=== PATIENT | female | born 1955 | race Caucasian/White ===

== ENCOUNTER 2021-04-26 11:40 | Inpatient (IN) | payer MEDICARE, SELFPAY ==
[2021-04-26] VITALS (33 sets, daily range): BP systolic 90–183; BP diastolic 51–96; PULSE 56–81; RESP 11–19; TEMP 36.1–37.1; O2SAT 94–99; BMI 35.6
--- NOTE | 2021-04-26 11:43 | CT_ITS ---
We are attempting to reach an attending provider to discuss findings. An addendum with communication details will be sent when the communication is complete. STUDY: CTA HEAD AND NECK WITH CONTRAST REASON FOR EXAM: Female, 65 years old. Neuro deficit, acute, stroke suspected RADIATION DOSAGE (If Supplied By Facility): CTDIvol = ( 19.51 ) mGy, DLP = ( 670.38 ) mGycm TECHNIQUE: CT angiography was performed with a multi-detector CT scanner. Data acquisition was obtained from the skull base through the vertex following intravenous administration of contrast. MIP images were reconstructed from the axial data set. Post-processing of the angiographic images was performed, with multiplanar reformation and 3D reconstruction. Individualized dose optimization techniques were used for this CT. COMPARISON: No relevant priors. FINDINGS: Normal bilateral petrous carotid arteries. Normal right cavernous carotid artery with a normal supraclinoid bifurcation. Normal left cavernous carotid artery with a normal supraclinoid bifurcation. Normal right A1 segments of the anterior cerebral artery. Normal left A1 segments of the anterior cerebral artery. Normal intact anterior communicating artery (ACOM). Normal bilateral A2 segments of the anterior cerebral arteries. Normal right M1 and M2 segments of the middle cerebral arteries, with a normal M1 bifurcation. Normal left M1 and M2 segments of the middle cerebral arteries, with a normal M1 bifurcation. Normal right posterior communicating artery (PCOM). Normal left posterior communicating artery (PCOM). Normal bilateral vertebral arteries. Normal basilar artery with a normal basilar bifurcation. The visualized bilateral superior cerebellar (SCA) arteries are normal. Normal bilateral P1, P2 and visualized P3 segments of the posterior cerebral arteries. There is no demonstrated aneurysm of the [place] of [place]. There is no demonstrated abnormality of the visualized brain. AORTIC ARCH: There is a bovine origin of the great vessels arising from the aortic arch with a common origin of the brachiocephalic and left common carotid artery. Normal origin of the left subclavian artery. Normal origins of the brachiocephalic, left common carotid, and left subclavian arteries. RIGHT CAROTID ARTERIES: Normal right common carotid artery (CCA). There is mild atherosclerotic plaque formation with minimal narrowing of the right carotid bulb. There is mild atherosclerotic plaque formation of the origin of the right internal carotid artery with less than 50% cross sectional diameter stenosis. Normal visualized cervical portion of the right internal carotid artery. Normal origin of the right external carotid artery (ECA). LEFT CAROTID ARTERIES: Normal left common carotid artery (CCA). There is mild atherosclerotic plaque formation with minimal narrowing of the left carotid bulb. There is mild atherosclerotic plaque formation of the origin of the left internal carotid artery with less than 50% cross sectional diameter stenosis. Normal visualized cervical portion of the left internal carotid artery. Normal origin of the left external carotid artery (ECA). VERTEBRAL ARTERIES: Normal bilateral vertebral arteries. CT/STROKE CTA Head AND Neck W/Con IMPRESSION: 1. Bovine arch. 2. Mild (20%) carotid stenosis bilaterally. 3. Patent vertebral arteries bilaterally. 4. Intracranially normal without stenosis or aneurysm. Electronically Signed: Rudy Rosado MD at 12:34 EDT Tel , Service support ,
--- NOTE | 2021-04-26 11:43 | CT_ITS ---
STUDY: CT HEAD STROKE PROTOCOL W/O CONTRAST INJECTION REASON FOR EXAM: Female, 65 years old. Neuro deficit, acute, stroke suspected RADIATION DOSAGE (If Supplied By Facility): CTDIvol = ( ) mGy, DLP = ( ) mGycm TECHNIQUE: Transaxial CT imaging of the brain was performed without administration of intravenous contrast material. Individualized dose optimization techniques were used for this CT. COMPARISON: No relevant priors. FINDINGS: Normal soft tissue structures. Normal calvarium. Normal size ventricles and extra-axial spaces for the patient''s age. Normal white matter tracts of the cerebral hemispheres. Normal basal ganglia and thalami. Normal brainstem. Normal cerebellum. There is no intracranial hemorrhage. There are no findings of an acute ischemic infarction. Normal visualized paranasal sinuses. ASPECT score: CT/STROKE Brain/Head without Cont IMPRESSION: Normal unenhanced CT scan of the brain. N.B. : The above Results were Read Back by Rudy Rosado MD to Martin Husotn MD, and understanding confirmed on 04/26/2021 12:13:58 (ET). Electronically Signed: Rudy Rosado MD at 12:15 EDT Tel , Service support ,
--- NOTE | 2021-04-26 11:43 | EKG12_ITS ---
Test Reason : STROKE Blood Pressure : / mmHG Vent. Rate : 081 BPM Atrial Rate : 081 BPM P-R Int : 182 ms QRS Dur : 086 ms QT Int : 382 ms P-R-T Axes : 026 -02 035 degrees QTc Int : 443 ms Normal sinus rhythm Normal ECG Confirmed by MEDARDO HA, MALA ([id number]), editor newspaper BLANCA DELA CRUZ ([id number]) on 04/30/2021 11:06:37 A M Referred By: WENDY Confirmed By:THADDEUS BATRES MD
--- NOTE | 2021-04-26 11:44 | ED.VIS.STROK ---
HPI History of Present Illness Chief Complaint: Neuro S/Sx Informant: EMS Onset/Context/Timing Onset: Today (1100) Context: Sudden Onset (Witnessed by family) Timing: Continuous Quality and Location: Positive for Left Arm Weakness, Left Leg Weakness and Expressive Aphasia Current Severity: Severe Maximum Severity: Severe Associated Symptoms Associated Symptoms: Negative for Vomiting Narrative Narrative: Witnessed sudden weakness left side and trouble speaking. Per EMS decreased level of consciousness but she was following some commands, nonverbal. No history of stroke, all of these deficits are new and acute. Medications and medical problems are unknown except for hyperlipidemia per EMS. They said family did not have a medication list or other medications with them, and they did not know anything else about her medical history although she has a medical bracelet on. BGT per EMS 77. PFSH PFSH Medical History GERD (gastroesophageal reflux disease) Hyperlipidemia Hypothyroid Sciatica unable to obtain Home Medications Lactobacillus acidophilus [Probiotic Acidophilus] 1,000 mmu cells PO DAILY 04/26/21 [History Last Taken Unknown] biotin 1,000 mcg PO DAILY 04/26/21 [History Last Taken Unknown] calcium carbonate-vitamin D3 [Calcium 600 + D(3)] 1 tab PO DAILY 04/26/21 [History Last Taken Unknown] cholecalciferol (vitamin D3) 25 mcg PO DAILY 04/26/21 [History Last Taken Unknown] dexamethasone 1 drp EACH EYE TID 04/26/21 [History Last Taken Unknown] gabapentin 600 mg PO DAILY 04/26/21 [History Last Taken Unknown] levothyroxine 75 mcg PO DAILY 04/26/21 [History Last Taken Unknown] lovastatin 20 mg PO DAILY 04/26/21 [History Last Taken Unknown] pantoprazole 40 mg PO DAILY 04/26/21 [History Last Taken Unknown] venlafaxine 75 mg PO BID 04/26/21 [History Last Taken Unknown] Allergy/AdvReac Type Severity Reaction Status Date / Time ketoprofen [From Orudis] Allergy Other Verified 04/26/21 12:01 latex AdvReac Other Verified 04/26/21 12:01 Surgical History Bariatric surgery status Social History (Updated 04/26/21 @ 12:[address] Martin Huston MD) household members: spouse other: Has had COVID-19 vaccination series Smoking Status: Never smoker ROS ROS ED Review of Systems ROS Unobtainable: due to mental status EXAM Physical Exam Const Vital Signs: 04/26/21 11:45 04/26/21 11:56 04/26/21 11:57 Temperature 97 F L Temperature Source Temporal Pulse Rate 74 81 81 Respiratory Rate 18 18 18 Blood Pressure 142/92 H 142/90 H 142/90 H Blood Pressure Mean 108 107 107 Blood Pressure Source Blood Pressure Position Blood Pressure Location Pulse Ox 97 97 Oxygen Delivery Method Room Air Room Air 04/26/21 12:02 04/26/21 12:04 04/26/21 12:15 Temperature 97 F L Temperature Source Oral Pulse Rate 79 76 Respiratory Rate 18 18 Blood Pressure 161/84 H 161/84 H 162/87 H Blood Pressure Mean 109 112 Blood Pressure Source Monitor Monitor Blood Pressure Position Semi-Fowlers Semi-Fowlers Blood Pressure Location Left Arm Left Arm Pulse Ox 97 98 Oxygen Delivery Method Room Air Room Air 04/26/21 12:30 04/26/21 12:41 04/26/21 12:45 Temperature Temperature Source Pulse Rate 72 70 Respiratory Rate 18 18 18 Blood Pressure 161/87 H 168/86 H Blood Pressure Mean 111 113 Blood Pressure Source Monitor Monitor Blood Pressure Position Semi-Fowlers Semi-Fowlers Blood Pressure Location Left Arm Left Arm Pulse Ox 99 99 Oxygen Delivery Method Room Air Room Air Positive well nourished and well developed General Appearance ED: well developed and NAD HEENT Reports moist mucous membranes normocephalic and atraumatic Eyes PERRL Eyes Narrative: Forced deviation to the right, with confrontation and asking, patient is able to come to midline but not beyond easily; when patient is looking forward there appears to be a disconjugate gaze mostly with the right eye. Neck full ROM and supple Resp normal respiratory effort and clear to auscultation bilaterally Cardio regular rate, regular rhythm and no murmurs Rate: Negative for tachycardic GI non-tender and non-distended Auscultation: normoactive bowel sounds Palpation: soft Back/Spine no CVA tenderness General Back: other FROM Extremity normal to inspection General Extremety ED: Negative for edema, pulses abnormal or tenderness General Extremity: Negative for edema or pulses abnormal Neuro Neuro Narrative: Nonverbal, does not follow commands Sensorium / Orientation: alert Skin no rashes or lesions noted and no wounds Rashes: no rashes STROKE Vital Signs/Narrative: Vital Signs Temp Pulse Resp BP Pulse Ox 04/26/21 12:45 70 18 168/86 H 99 04/26/21 12:41 18 04/26/21 12:30 72 18 161/87 H 99 04/26/21 12:15 76 18 162/87 H 98 04/26/21 12:04 161/84 H 04/26/21 12:02 97 F L 79 18 161/84 H 97 04/26/21 11:57 81 18 142/90 H 97 04/26/21 11:56 81 18 142/90 H 97 04/26/21 11:45 97 F L 74 18 142/92 H NIHSS Initial: 1a Level of Consciousness: 2 1b LOC Questions (Score 2 if aphasic/stupor): 2 1c LOC Commands (Only score 1st attempt): 1 2 Best Gaze (If aphasic, use reflexive mvmts.): 2 3 Visual: 2 4 Facial Palsy: 1 5 Motor Arm Right (UN = amputation/fusion): 0 5 Motor Arm Left: 3 6 Motor Leg Right: 2 6 Motor Leg Left: 4 7 Limb ataxia (Only + if out of proportion): 0 8 Sensory (Aphasia/stupor=0 or 1, coma=2): 1 9 Best Language: 3 10 Dysarthria (mute, coma=2, intubated=UN): 2 11 Extinction and Inattention (only scored if +): 0 Total Score: 25 MDM MDM MDM Narrative Medical decision making narrative: Patient went directly to CT, nursing was able to secure an IV line while prepping for the plain CT, so CT angiography was performed at the same time, I looked at the plain CT scan in real-time confirming that there was no hemorrhage, and reevaluated the patient back in the room after we got a weight on the patient between transportation from the CT table back to the ED, and quickly ordering alteplase. See the NIHSS for the results of this exam. Discussed with the son, while nursing called the patient's family practice clinic confirming that she takes no antiplatelet or anticoagulant medications, more family soon arrived with her bag of medications and we were able to again confirm this. With the son at the bedside discussing pros and cons of TPA and the fact that the patient is a candidate, in addition simultaneously confirming that the last known well was actually 1045 instead of 11, the patient is still in the window and I approved TPA administration. Dr. Mccurdy with [facility] in agreement with this decision. Head CT results reported to me by neurology as negative at 1214. tPA bolus started at 1204 with blood pressure 161/84 just prior to administration. Some medical history was inferred from her medication list. Family provided other history. No recent falls or head injuries. No recent surgeries or hospitalizations in the past 2 months. 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 Normally, she walks, talks, has no disabilities otherwise and is very functionally independent. On reevaluation several times during the ED stay after alteplase started, no significant clinical changes, blood pressure remaining stable in the 160 range systolic. Nursing monitoring closely. Lab Data Attestation: I reviewed the patient's lab results. Labs: Laboratory Results - last 24 hr 04/26/21 04/26/21 04/26/21 11:54 11:55 11:55 WBC 3.1 L RBC 4.29 Hgb 13.5 Hct 39.5 MCV 92.1 MCH 31.5 MCHC 34.2 RDW Std Deviation 44.0 H RDW Coeff of Tamika 13.2 Plt Count 159 MPV 9.7 Immature Gran % (Auto) 0.300 Neut % (Auto) 57.9 Lymph % (Auto) 27.7 [place] % (Auto) 13.4 H Eos % (Auto) 0.0 Baso % (Auto) 0.7 Absolute Neuts (auto) 1.8 L Absolute Lymphs (auto) 0.85 Nucleated RBC % 0 PT 13.0 INR 1.0 APTT 28.8 Sodium Potassium Chloride Carbon Dioxide Anion Gap BUN Creatinine Estim Creat Clear Calc Est GFR (MDRD) Af Amer Est GFR (MDRD) Non-Af BUN/Creatinine Ratio Glucose Calcium Troponin I POC Glucose 81 04/26/21 11:55 WBC RBC Hgb Hct MCV MCH MCHC RDW Std Deviation RDW Coeff of Tamika Plt Count MPV Immature Gran % (Auto) Neut % (Auto) Lymph % (Auto) [place] % (Auto) Eos % (Auto) Baso % (Auto) Absolute Neuts (auto) Absolute Lymphs (auto) Nucleated RBC % PT INR APTT Sodium 140 Potassium 3.7 Chloride 105 Carbon Dioxide 29.0 Anion Gap 6 BUN 16 Creatinine 0.85 Estim Creat Clear Calc 58.58 Est GFR (MDRD) Af Amer 86 Est GFR (MDRD) Non-Af 71 BUN/Creatinine Ratio 18.8 Glucose 92 Calcium 8.7 Troponin I < 0.015 POC Glucose Radiography Diagnostic Testing: Radiology Impression Brain CT 04/26/21 11:43 IMPRESSION: Normal unenhanced CT scan of the brain. N.B. : The above Results were Read Back by Rudy Rosado MD to Martin Huston MD, and understanding confirmed on 04/26/2021 12:13:58 (ET). Electronically Signed: Rudy Rosado MD at 12:15 EDT Tel , Service support , ADDENDUM: 04/26/21 1222 IMPRESSION: Normal unenhanced CT scan of the brain. N.B. : The above Results were Read Back by Rudy Rosado MD to Martin Huston MD, and understanding confirmed on 04/26/2021 12:13:58 (ET). Electronically Signed: Rudy Rosado MD at 12:15 EDT Tel , Service support , Head/Neck CTA 04/26/21 11:43 IMPRESSION: 1. Bovine arch. 2. Mild (20%) carotid stenosis bilaterally. 3. Patent vertebral arteries bilaterally. 4. Intracranially normal without stenosis or aneurysm. Electronically Signed: Rudy Rosado MD at 12:34 EDT Tel , Service support , ADDENDUM: 04/26/21 1242 IMPRESSION: 1. Bovine arch. 2. Mild (20%) carotid stenosis bilaterally. 3. Patent vertebral arteries bilaterally. 4. Intracranially normal without stenosis or aneurysm. N.B. : The above Results were Read Back by Rudy Rosado MD to Martin Huston MD, and understanding confirmed on 04/26/2021 12:35:13 (ET). Electronically Signed: Rudy Rosado MD at 12:34 EDT Tel , Service support , Chest X-Ray 04/26/21 12:30 IMPRESSION: Normal x-ray examination of the chest. Electronically Signed: Rudy Rosado MD at 12:43 EDT Tel , Service support , EKG Initial EKG: Attestation: I personally reviewed and interpreted this EKG as follows: Interpretation: Sinus Rhythm and No Acute Injury Pattern Comments: NSR 62, normal EKG Stroke Documentation Questions Stroke Team Activated: Yes (Prehospital; met EMS in ambulance bay for initial cursory evaluation of pt) Reviewed Inclusion/Exclusion criteria: Yes Was Patient considered for Endovascular Intervention?: No (neg CTA, no LVO) IV Alteplase (t-PA) Administered: Yes No contraindications for IV Alteplase (t-PA) administration.: Yes Alteplase (t-PA) risks, benefits, alternative discussed: Yes (son and daughter; all questions answered at bedside) Critical Care Time Critical Care Time: Yes Critical care time (excluding procedures): 30-74 minutes (40), Including time spent:, Discussing w/Patient &/or Family/Wafer Mounter, Discussing w/Consultants, Arranging Admission or Transfer and Performing Direct Patient Care at Bedside Discharge Plan Dx/Rx/DC Orders Clinical Impression: Acute ischemic stroke Disposition Disposition: Acute Care [facility]
[2021-04-26 12:15] LABS: Bedside Glucose 81 mg/dL (70-110)
[2021-04-26 12:15] LABS: Absolute Lymphocyte Count 0.85 X10^3/uL (0.83-4.51); Absolute Neutrophil Count 1.8 X10^3/uL (2.0-7.7); Basophil# 0.02 X10^3/uL; Basophil% 0.7 % (0-1); Hematocrit 39.5 % (37-47); Hemoglobin 13.5 g/dL (12.0-15.0); Lymphocyte # 0.85 X10^3/ul (0.83-4.51); Lymphocyte % 27.7 % (19-41); Mean Corp Hgb Conc 34.2 g/dL (32-36); Mean Corpuscular Hgb 31.5 pg (27.0-32.0); Mean Corpuscular Volume 92.1 fL (81-99); Mean Platelet Vol. 9.7 fl (6.2-12.0); Monocyte# 0.41 X10^3/uL; Monocyte% 13.4 % (0-10); NRBC Flagged by Analyzer 0 % (0-5); Neutrophil # 1.78 X10^3/uL (2.7-7.7); Neutrophil % 57.9 % (47-70); Platelet Count 159 K/mm3 (150-450); RBC Distribution Width CV 13.2 % (11.6-14.6); Red Blood Count 4.29 M/mm3 (4.2-5.4); White Blood Count 3.1 K/mm3 (4.4-11.0)
[2021-04-26 12:17] LABS: Partial Thromboplast Time 28.8 Seconds (24.1-36.2)
[2021-04-26 12:24] LABS: Anion Gap 6 (5-15); BUN 16 mg/dL (7-18); BUN/Creat Ratio 18.8 RATIO (10-20); Calcium,Total 8.7 mg/dL (8.5-10.1); Chloride 105 mmol/L (98-107); Creatinine, Serum 0.85 mg/dL (0.55-1.02); EST Glomerular Filtration Rate 71 mL/min (>60); Est Glom Filt Rate - Afr Amer 86 mL/min (>60); Estimated Creatinine Clearance 58.58 ml/min; Glucose 92 mg/dL (74-106); Potassium 3.7 mmol/L (3.5-5.1); Sodium Level 140 mmol/L (136-145)
--- NOTE | 2021-04-26 12:30 | RAD_ITS ---
STUDY: X-RAY CHEST REASON FOR EXAM: Female, 65 years old. Neuro deficit, acute, stroke suspected TECHNIQUE: Single AP portable view of the chest. COMPARISON: None. FINDINGS: The lungs are clear and expanded. There is no demonstrated pleural abnormality. Normal size heart. Normal mediastinum and cassie. Normal visualized pulmonary arteries. Normal visualized aortic arch and descending thoracic aorta. Normal visualized thoracic spine. Normal visualized ribs, clavicles, and shoulders. There is no demonstrated abnormality of the visualized soft tissue structures of the upper abdomen. RAD/Chest 1 View IMPRESSION: Normal x-ray examination of the chest. Electronically Signed: Rudy Rosado MD at 12:43 EDT Tel , Service support ,
--- NOTE | 2021-04-26 12:49 | HP.PCM.HOS_ITS ---
HPI - General General Date of Admission: 04/26/21 HPI Narrative JULIA MCLAUGHLIN, is a 65 F with a PMH as outlined who was admitted via the ED with a complaint of left sided weakness and trouble speaking. Family had no knowledge of any other history, and only knew that she had a medical bracelet. SHe was unable to talk at all on arrival, and so couldnt give much of a history. She was noted to have a disconjugate gaze which family said had been like that for a while. Vitals in the ED showed temperature of 97 Fahrenheit with blood pressure of 142/92, respiratory rate of 18 and pulse rate of 74 and she was saturating at 97% on room air. Initial NIH stroke scale was 25. Stroke alert was called in the ED and she had a stat CT of the brain done which was negative for any evidence of ischemia or hemorrhage. She was deemed to be a candidate for TPA as last known well was around 1045. [facility] telestroke service was consulted and patient had TPA at 1204. She has been admitted to be managed for left-sided weakness and aphasia due to probable stroke. At the time I reviewed her, patient still have significant expressive aphasia but was not able to say single words and had some movement of her upper extremities spontaneously which family said was not present previously. [facility] Medical History GERD (gastroesophageal reflux disease) Hyperlipidemia Hypothyroid Sciatica Home Medications Lactobacillus acidophilus [Probiotic Acidophilus] 1,000 mmu cells PO DAILY 04/26/21 [History Last Taken Unknown] biotin 1,000 mcg PO DAILY 04/26/21 [History Last Taken Unknown] calcium carbonate-vitamin D3 [Calcium 600 + D(3)] 1 tab PO DAILY 04/26/21 [History Last Taken Unknown] cholecalciferol (vitamin D3) 25 mcg PO DAILY 04/26/21 [History Last Taken Unknown] dexamethasone 1 drp EACH EYE TID 04/26/21 [History Last Taken Unknown] gabapentin 600 mg PO DAILY 04/26/21 [History Last Taken Unknown] levothyroxine 75 mcg PO DAILY 04/26/21 [History Last Taken Unknown] lovastatin 20 mg PO DAILY 04/26/21 [History Last Taken Unknown] pantoprazole 40 mg PO DAILY 04/26/21 [History Last Taken Unknown] venlafaxine 75 mg PO BID 04/26/21 [History Last Taken Unknown] Allergy/AdvReac Type Severity Reaction Status Date / Time ketoprofen [From Orudis] Allergy Other Verified 04/26/21 12:01 latex AdvReac Other Verified 04/26/21 12:01 Surgical History Bariatric surgery status Social History (Updated 04/26/21 @ 12:[address] Martin Huston MD) household members: spouse other: Has had COVID-19 vaccination series Smoking Status: Former smoker ROS Review of Systems ROS Unobtainable: due to encephalopathy and other Details: due to aphasia Eyes Eyes: Reports other Vital Signs Vital Signs Vital Signs: 04/26/21 11:45 04/26/21 11:56 04/26/21 11:57 Temperature 97 F L Temperature Source Temporal Pulse Rate 74 81 81 Respiratory Rate 18 18 18 Blood Pressure 142/92 H 142/90 H 142/90 H Blood Pressure Mean 108 107 107 Blood Pressure Source Blood Pressure Position Blood Pressure Location Pulse Ox 97 97 Oxygen Delivery Method Room Air Room Air 04/26/21 12:02 04/26/21 12:04 04/26/21 12:15 Temperature 97 F L Temperature Source Oral Pulse Rate 79 76 Respiratory Rate 18 18 Blood Pressure 161/84 H 161/84 H 162/87 H Blood Pressure Mean 109 112 Blood Pressure Source Monitor Monitor Blood Pressure Position Semi-Fowlers Semi-Fowlers Blood Pressure Location Left Arm Left Arm Pulse Ox 97 98 Oxygen Delivery Method Room Air Room Air 04/26/21 12:30 04/26/21 12:41 Temperature Temperature Source Pulse Rate 72 Respiratory Rate 18 18 Blood Pressure 161/87 H Blood Pressure Mean 111 Blood Pressure Source Monitor Blood Pressure Position Semi-Fowlers Blood Pressure Location Left Arm Pulse Ox 99 Oxygen Delivery Method Room Air Weight Weight: 214 lb 4.629 oz Body Mass Index (BMI) 35.6 Physical Exam Const alert Constitutional Narrative: aphasic General Appearance: cooperative HEENT head/scalp atraumatic and hearing grossly normal bilaterally Eyes PERRL, EOMs intact bilaterally and conjunctivae normal Neck no lymphadenopathy, supple, no JVD and no carotid bruits Resp normal respiratory effort, no retractions, no use of accessory muscles and clear to auscultation bilaterally Cardio regular rate, regular rhythm, S1 normal heart sound, S2 normal heart sound and no murmurs GI normal to inspection, nondistended, normoactive bowel sounds, soft to palpation, non-tender and non-distended Extremity normal to inspection, full ROM and no clubbing, cyanosis or edema Peripheral Pulses: Yes pulses 2+ throughout Skin no rashes or lesions noted Neuro Neuro Narrative: expressive aphasia, able to say single words, has power 4/5 in both UEs, and 5/5 in RLE. LLE has power 3-/5 Results Lab / Micro Data Result Diagrams: 04/27/21 04:02 04/27/21 04:02 Labs: Laboratory Results - last 24 hr 04/26/21 04/26/21 04/26/21 11:54 11:55 11:55 WBC 3.1 L RBC 4.29 Hgb 13.5 Hct 39.5 MCV 92.1 MCH 31.5 MCHC 34.2 RDW Std Deviation 44.0 H RDW Coeff of Tamika 13.2 Plt Count 159 MPV 9.7 Immature Gran % (Auto) 0.300 Neut % (Auto) 57.9 Lymph % (Auto) 27.7 Bee % (Auto) 13.4 H Eos % (Auto) 0.0 Baso % (Auto) 0.7 Absolute Neuts (auto) 1.8 L Absolute Lymphs (auto) 0.85 Nucleated RBC % 0 PT 13.0 INR 1.0 APTT 28.8 Sodium Potassium Chloride Carbon Dioxide Anion Gap BUN Creatinine Estim Creat Clear Calc Est GFR (MDRD) Af Amer Est GFR (MDRD) Non-Af BUN/Creatinine Ratio Glucose Calcium Troponin I POC Glucose 81 04/26/21 11:55 WBC RBC Hgb Hct MCV MCH MCHC RDW Std Deviation RDW Coeff of Tamika Plt Count MPV Immature Gran % (Auto) Neut % (Auto) Lymph % (Auto) Bee % (Auto) Eos % (Auto) Baso % (Auto) Absolute Neuts (auto) Absolute Lymphs (auto) Nucleated RBC % PT INR APTT Sodium 140 Potassium 3.7 Chloride 105 Carbon Dioxide 29.0 Anion Gap 6 BUN 16 Creatinine 0.85 Estim Creat Clear Calc 58.58 Est GFR (MDRD) Af Amer 86 Est GFR (MDRD) Non-Af 71 BUN/Creatinine Ratio 18.8 Glucose 92 Calcium 8.7 Troponin I < 0.015 POC Glucose Radiology Impression Brain CT 04/26/21 11:43 IMPRESSION: Normal unenhanced CT scan of the brain. N.B. : The above Results were Read Back by Rudy Rosado MD to Martin Huston MD, and understanding confirmed on 04/26/2021 12:13:58 (ET). Electronically Signed: Rudy Rosado MD at 12:15 EDT Tel , Service support , ADDENDUM: 04/26/21 1222 IMPRESSION: Normal unenhanced CT scan of the brain. N.B. : The above Results were Read Back by Rudy Rosado MD to Martin Huston MD, and understanding confirmed on 04/26/2021 12:13:58 (ET). Electronically Signed: Rudy Rosado MD at 12:15 EDT Tel , Service support , Head/Neck CTA 04/26/21 11:43 IMPRESSION: 1. Bovine arch. 2. Mild (20%) carotid stenosis bilaterally. 3. Patent vertebral arteries bilaterally. 4. Intracranially normal without stenosis or aneurysm. Electronically Signed: Rudy Rosado MD at 12:34 EDT Tel , Service support , ADDENDUM: 04/26/21 1242 IMPRESSION: 1. Bovine arch. 2. Mild (20%) carotid stenosis bilaterally. 3. Patent vertebral arteries bilaterally. 4. Intracranially normal without stenosis or aneurysm. N.B. : The above Results were Read Back by Rudy Rosado MD to Martin Huston MD, and understanding confirmed on 04/26/2021 12:35:13 (ET). Electronically Signed: Rudy Rosado MD at 12:34 EDT Tel , Service support , Chest X-Ray 04/26/21 12:30 IMPRESSION: Normal x-ray examination of the chest. Electronically Signed: Rudy Rosado MD at 12:43 EDT Tel , Service support , Assessment & Plan Assessment/Plan (1) Acute ischemic stroke: PLAN: #Acute left sided weakness and aphasia due to probable stroke * S/p TPA administration. Admit to ICU * CT of the brain was negative for any evidence of ischemia or hemorrhage * CTA of the head and neck showed a bovine arch and mild 20% carotid stenosis bilaterally with patent vertebral arteries and intracranially normal arteries without stenosis or aneurysm * Admit to ICU. Hold off on aspirin or Plavix until about 24 hours after TPA administration * Consult critical care as patient will be in ICU. We will get MRI of the brain tomorrow, 24 hours after tPA administration. * neurovascular checks per stroke protocol * Check A1c and lipid panel; get 2D echo * PT OT consult. Fall precautions * Give high intensity statin * #Hypothyroidism: On Synthroid #Hyperlipidemia: On lovastatin 20 mg daily. We will switch this to high intensity statin. #Depression: On venlafaxine 75 mg twice daily. DVT prophylaxis: SCDs. No anticoagulation as patient has received TPA CODE STATUS: Full code * I discussed CODE STATUS with patient's daughter and . Daughter says she thinks she is the POA but she is not sure. However per discussion with her father as patient was not able to really partake in the discussion, they agree that they want to make patient full code for now * Total [id number] time 17 minutes. Charges/Coding Visit Charges Inpatient E&M: 90779 Init Hosp L3 Procedures Hospitalists Procedures: 40221 Advncd Care Plan 30 Min
--- NOTE | 2021-04-26 12:58 | CM.ED ---
SW Note Reason for Referral: Stroke Alert Referral Source: Stroke Alert SW was present when patient's son, daughter, and arrived in response to patient being evaluated for stroke. Patient's sleeve fixer was contacted by School Lunch Monitor and present in room. Emotional support provided to family. Plan: Patient will be admitted to ICU Gwen KANG
[2021-04-26] MEDS: 0.9% Normal Saline 1,000 ML 100 ML IV (13:12)
[2021-04-26] MEDS: Labetalol (Prefilled) 20 MG/4 ML IV (14:23)
--- NOTE | 2021-04-26 14:54 | ECHOCS_ITS ---
Reason For Study: TIA/CVA Procedure This was a 2D Doppler, Color Flow transthoracic echocardiogram. The study was technically difficult. Due to body habitus. Contrast injection was performed. Left Ventricle Normal LV size. The estimated ejection fraction is 60 %. Unable to assess diastolic dysfunction. No regional wall motion abnormalities noted. Right Ventricle Normal RV size. Normal systolic function. Atria Normal left atrium. Normal right atrium. No doppler evidence for ASD. Mitral Valve There is moderate mitral annular calcification. There is no mitral valve stenosis. No mitral valve insufficiency. Tricuspid Valve There is no tricuspid stenosis. No tricuspid valve insufficiency. Unable to estimate RV systolic pressure due to inadequate jet, pulmonary artery pressure probably normal. Aortic Valve Trisinus/trileaflet aortic valve. There is no aortic stenosis. No aortic valve insufficiency. Pulmonic Valve There is no pulmonic valvular stenosis. No pulmonic valve insufficiency. Great Vessels Normal aortic root. Pericardium/Pleural No pericardial effusion. Medication Diluted definity 3.0ml given slow IV push to enhance endocardial definition. Performed a rapid injection of agitated mix of 9 cc saline and 1cc air to assess for atrial septal defect. MMode/2D Measurements & Calculations LVIDd: 4.4 cm IVSd: 1.2 cm Ao root diam: 3.2 cm LVIDs: 3.1 cm LVPWd: 1.1 cm FS: 29.7 % LAV(MOD-bp): 46.3 ml LVAd ap4: 31.8 cm2 LVAd ap2: 25.4 cm2 LAV(MOD-bp) Indexed: 22.7 ml/m2 LVLd ap4: 8.4 cm LVLd ap2: 8.7 cm LAV(MOD-sp2): 45.7 ml EDV(MOD-sp4): 96.1 ml EDV(MOD-sp2): 61.1 ml LAV(MOD-sp4): 47.3 ml EDV(sp4-el): 101.7 ml EDV(sp2-el): 62.7 ml LVAs ap4: 15.6 cm2 LVAs ap2: 11.9 cm2 LVLs ap4: 7.4 cm LVLs ap2: 6.7 cm ESV(MOD-sp4): 27.4 ml ESV(MOD-sp2): 18.3 ml ESV(sp4-el): 27.8 ml ESV(sp2-el): 18.0 ml EF(MOD-sp4): 71.5 % EF(MOD-sp2): 70.0 % EF(sp4-el): 72.6 % SV(MOD-sp4): 68.7 ml SV(MOD-sp2): 42.8 ml SV(sp4-el): 73.9 ml LA A4 area: 18.1 cm2 LA dimension(2D): 4.1 cm Time Measurements MV dec time: 0.27 sec Doppler Measurements & Calculations MV E max arnie: 78.5 cm/sec Lat Peak E' Arnie: 8.3 cm/sec Med Peak E' Arnie: 7.2 cm/sec MV A max arnie: 100.6 cm/sec E/E' lat: 9.5 E/E' med: 11.0 MV E/A: 0.78 Ao V2 max: 130.3 cm/sec LV V1 max: 86.9 cm/sec PA V2 max: 84.4 cm/sec Ao max P.8 mmHg LV V1 max P.0 mmHg ECHO/Echo Complete W/ Contrast Interpretation Summary The estimated ejection fraction is 60 %. Unable to assess diastolic dysfunction. There is moderate mitral annular calcification. Ordering Physician: Estefany Hatfield Referring Physician: Gold Conrad Performed By: Inge Bañuelos, KRISTIN, RVT
--- NOTE | 2021-04-26 16:42 | CHAPLAIN ---
Type of Pastoral Visit ___ Initial Visit ___ Follow-up Visit ___ On-call Visit ___ General Patient Visit ___ Spiritual Assessment ___ Family Conference ___ Bereavement _x__ Rapid Response ___ Code Blue ___ Other (describe below) Pastoral Care Referral From ___ Patient ___ Family ___ Nurse ___ Physician ___ Baking Factory Worker ___ Printer'S Devil _x__ Other (describe below) Sacrament/Intervention _x__ Active listening ___ Anointing ___ Confucianist ___ Bereavement ___ Communion ___ Jazmín exploration ___ ___ Life review _x__ Prayer ___ Reconciliation ___ Sacrament of Sick _x__ Supportive presence ___ Wedding ___ Other (describe below) Pastoral Comments came to ED for Stroke Alert; son of patient was already in waiting room; SW and this composition floor setter introduced ourselves and our roles in ED to him; offered support and presence until pt was brought back to ED; other family members arrived and more support and presence offered; family requested prayer support at this time and a call to be made to their compressor repairer/presybeterian; call made to compressor repairer and he soon arrived; escorted compressor repairer to room and to family where more support and prayers were given; saw compressor repairer out of hospital; looked in on family to see if further needs were evident; pt was later moved to ICU
--- NOTE | 2021-04-26 17:00 | NURSING ---
Dysphagia screening completed per speech therapy-- ok'd pt for regular textures and thin liquids.
[2021-04-26] MEDS: 0.9% Normal Saline 1,000 ML 500 ML IV (19:58)
[2021-04-26 20:13] LABS: Hematocrit 39.2 % (37-47); Hemoglobin 13.1 g/dL (12.0-15.0)
[2021-04-26] MEDS: Atorvastatin Calcium 80 MG Tablet PO (21:06)
[2021-04-26] MEDS: Venlafaxine XR 75 MG Capsule PO (21:06)
[2021-04-26 22:10] LABS: Bedside Glucose 93 mg/dL (70-110)
[2021-04-27] VITALS (27 sets, daily range): BP systolic 93–150; BP diastolic 52–100; PULSE 61–86; RESP 12–23; TEMP 36.7–37.1; O2SAT 92–97; BMI 35.6
[2021-04-27 04:14] LABS: Absolute Lymphocyte Count 0.89 X10^3/uL (0.83-4.51); Absolute Neutrophil Count 2.9 X10^3/uL (2.0-7.7); Basophil# 0.02 X10^3/uL; Basophil% 0.5 % (0-1); Eosinophil# 0.01 X10^3/uL; Eosinophils% 0.2 % (0-5); Hematocrit 36.5 % (37-47); Hemoglobin 12.3 g/dL (12.0-15.0); Lymphocyte # 0.89 X10^3/ul (0.83-4.51); Lymphocyte % 20.7 % (19-41); Mean Corp Hgb Conc 33.7 g/dL (32-36); Mean Corpuscular Hgb 31.3 pg (27.0-32.0); Mean Corpuscular Volume 92.9 fL (81-99); Mean Platelet Vol. 9.7 fl (6.2-12.0); Monocyte# 0.48 X10^3/uL; Monocyte% 11.2 % (0-10); NRBC Flagged by Analyzer 0 % (0-5); Neutrophil # 2.89 X10^3/uL (2.7-7.7); Neutrophil % 67.2 % (47-70); Platelet Count 163 K/mm3 (150-450); RBC Distribution Width CV 13.2 % (11.6-14.6); RBC Distribution Width SD 44.8 fl (35.1-43.9); Red Blood Count 3.93 M/mm3 (4.2-5.4); White Blood Count 4.3 K/mm3 (4.4-11.0)
[2021-04-27 04:30] LABS: Anion Gap 5 (5-15); BUN 14 mg/dL (7-18); BUN/Creat Ratio 16.9 RATIO (10-20); Calcium,Total 8.4 mg/dL (8.5-10.1); Chloride 107 mmol/L (98-107); Cholesterol 135 mg/dL (200); Creatinine, Serum 0.83 mg/dL (0.55-1.02); EST Glomerular Filtration Rate 73 mL/min (>60); Est Glom Filt Rate - Afr Amer 88 mL/min (>60); Estimated Creatinine Clearance 57.57 ml/min; Glucose 99 mg/dL (74-106); High Density Lipoprotein 55 mg/dL; Potassium 3.8 mmol/L (3.5-5.1); Sodium Level 141 mmol/L (136-145); Triglycerides 95 mg/dL; Very Low Density Lipoprotein 19 mg/dL (5-40)
[2021-04-27] MEDS: Levothyroxine 75 MCG Tablet PO (06:30)
--- NOTE | 2021-04-27 06:51 | CON.PCM.CC_ITS ---
Assessment & Plan Assessment/Plan (1) Acute ischemic stroke: PLAN: RECOMMENDATIONS: 1. Continue routine monitoring per stroke/TPA protocol. 2. MRI brain today. 3. Continue as needed antihypertensives. 4. PT/OT evaluations this afternoon. IMPRESSIONS: 1. Acute ischemic CVA status post TPA Continue routine management per TPA protocol. Continue as needed antihypertensives. MRI brain is pending for noon today. The patient has alrea dy passed a swallow evaluation. Pending outcome of the head imaging study, recommend PT/OT evaluations this afternoon. 2. Hypothyroidism/hyperlipidemia/depression Complicates care, management, recovery and prognosis. Continue home medications as indicated. This note was generated with [employer] dictation software. It may contain incorrect words, spelling, and punctuation that were not noted in checking the note before signing. HPI Consult Data Date of Consult: 04/27/21 HPI Narrative Reason for Consultation: Acute CVA status post TPA HPI Narrative: The patient is a 65-year-old female, with a history as outlined below, who presented to the emergency department on April 26 with rather acute onset left-sided weakness and dysarthria. The patient denied a history of prior CVA. On presentation to the emergency department, the patient was noted to be afebrile and hemodynamically stable. She was maintaining appropriate oxygen saturations on room air. Laboratory evaluation revealed a normal coagulation profile. Chemistry profile was unremarkable. Troponin was negative. CT head was unremarkable. CTA head and neck revealed mild carotid stenosis bilaterally without any other intracranial stenosis or aneurysm identified. Neurology consultation was obtained and the decision was made to administer TPA. tPA bolus was initiated at 12:04 PM. NIH was noted to be 22. The patient was sub sequently admitted to the medical intensive care unit for further management. [facility] Medical History GERD (gastroesophageal reflux disease) Hyperlipidemia Hypothyroid Sciatica Home Medications Lactobacillus acidophilus [Probiotic Acidophilus] 1,000 mmu cells PO DAILY 04/26/21 [History Last Taken Unknown] biotin 1,000 mcg PO DAILY 04/26/21 [History Last Taken Unknown] calcium carbonate-vitamin D3 [Calcium 600 + D(3)] 1 tab PO DAILY 04/26/21 [His tory Last Taken Unknown] cholecalciferol (vitamin D3) 25 mcg PO DAILY 04/26/21 [History Last Taken U nknown] dexamethasone 1 drp EACH EYE TID 04/26/21 [History Last Taken Unknown] gabapentin 600 mg PO DAILY 04/26/21 [History Last Taken Unknown] levothyroxine 75 mcg PO DAILY 04/26/21 [History Last Taken Unknown] lovastatin 20 mg PO DAILY 04/26/21 [History Last Taken Unknown] pantoprazole 40 mg PO DAILY 04/26/21 [History Last Taken Unknown] venlafaxine 75 mg PO BID 04/26/21 [History Last Taken Unknown] Allergy/AdvReac Type Severity Reaction Status Date / Time ketoprofen [From Orudis] Allergy Other Verified 04/26/21 12:01 latex AdvReac Other Verified 04/26/21 12:01 Surgical History Bariatric surgery status Social History (Updated 04/26/21 @ 12:[address] Martin Huston MD) household members: spouse other: Has had COVID-19 vaccination series Smoking Status: Former smoker ROS Constitutional Constitutional: Denies body ache(s), chills, fatigue or fever(s) Eyes Eyes: Reports change in vision ENT HEENT: Denies dizziness, dysphagia or headache(s) Cardiovascular Cardiovascular: Denies chest pain, dizziness or dyspnea Respiratory/Chest Respiratory/Chest: Denies chest tightness, cough or hemoptysis Gastrointestinal Gastrointestinal: Denies abdominal pain, diarrhea, nausea or vomiting Genitourinary Genitourinary: Denies difficulty urinating Musculoskeletal Musculoskeletal: Denies arthralgias or back pain Integumentary Integumentary: Denies lesions, rash or skin ulcer Neurologic Neurologic: Reports abnormal speech and focal weakness Psychiatric Psychiatric: Denies anxiety or depression Endocrine Endocrinology: Denies fatigue or polydipsia Hematologic/Lymphatic Hematologic/Lymphatic: Denies easy bleeding or easy bruising Physical Exam Const alert, oriented x3 and no apparent distress General Appearance: cooperative and well developed HEENT normocephalic, head/scalp atraumatic and moist oral mucous membranes Eyes PERRL, EOMs intact bilaterally and conjunctivae normal Neck supple General: trachea midline Resp normal respiratory effort Auscultation: Negative for rales, rhonchi or wheezes Cardio regular rate, regular rhythm, S1 normal heart sound and S2 normal heart sound Heart Sounds: Negative for murmur GI normal to inspection, nondistended, normoactive bowel sounds Extremity no clubbing, cyanosis or edema Skin no rashes or lesions noted Neuro oriented x3, CN's II-XII intact bilaterally and moves all extremities Speech: speech normal Psych cooperative and affect normal Appearance: well kempt Lab / Micro Data Result Diagrams: 04/27/21 04:02 04/27/21 04:02 Labs: Laboratory Results - last 24 hr 04/26/21 04/26/21 04/26/21 11:54 11:55 11:55 WBC 3.1 L RBC 4.29 Hgb 13.5 Hct 39.5 MCV 92.1 MCH 31.5 MCHC 34.2 RDW Std Deviation 44.0 H RDW Coeff of Tamika 13.2 Plt Count 159 MPV 9.7 Immature Gran % (Auto) 0.300 Neut % (Auto) 57.9 Lymph % (Auto) 27.7 Whiteside % (Auto) 13.4 H Eos % (Auto) 0.0 Baso % (Auto) 0.7 Absolute Neuts (auto) 1.8 L Absolute Lymphs (auto) 0.85 Nucleated RBC % 0 PT 13.0 INR 1.0 APTT 28.8 Sodium Potassium Chloride Carbon Dioxide Anion Gap BUN Creatinine Estim Creat Clear Calc Est GFR (MDRD) Af Amer Est GFR (MDRD) Non-Af BUN/Creatinine Ratio Glucose Calcium Troponin I Triglycerides Cholesterol LDL Cholesterol VLDL Cholesterol HDL Cholesterol POC Glucose 81 04/26/21 04/26/21 04/26/21 11:55 20:00 20:00 WBC RBC Hgb 13.1 Hct 39.2 MCV MCH MCHC RDW Std Deviation RDW Coeff of Tamika Plt Count MPV Immature Gran % (Auto) Neut % (Auto) Lymph % (Auto) Whiteside % (Auto) Eos % (Auto) Baso % (Auto) Absolute Neuts (auto) Absolute Lymphs (auto) Nucleated RBC % PT INR APTT Sodium 140 Potassium 3.7 Chloride 105 Carbon Dioxide 29.0 Anion Gap 6 BUN 16 Creatinine 0.85 Estim Creat Clear Calc 58.58 Est GFR (MDRD) Af Amer 86 Est GFR (MDRD) Non-Af 71 BUN/Creatinine Ratio 18.8 Glucose 92 Calcium 8.7 Troponin I < 0.015 < 0.015 Triglycerides Cholesterol LDL Cholesterol VLDL Cholesterol HDL Cholesterol POC Glucose 04/26/21 04/27/21 04/27/21 22:08 04:02 04:02 WBC 4.3 L RBC 3.93 L Hgb 12.3 Hct 36.5 L MCV 92.9 MCH 31.3 MCHC 33.7 RDW Std Deviation 44.8 H RDW Coeff of Tamika 13.2 Plt Count 163 MPV 9.7 Immature Gran % (Auto) 0.200 Neut % (Auto) 67.2 Lymph % (Auto) 20.7 Whiteside % (Auto) 11.2 H Eos % (Auto) 0.2 Baso % (Auto) 0.5 Absolute Neuts (auto) 2.9 Absolute Lymphs (auto) 0.89 Nucleated RBC % 0 PT INR APTT Sodium 141 Potassium 3.8 Chloride 107 Carbon Dioxide 29.0 Anion Gap 5 BUN 14 Creatinine 0.83 Estim Creat Clear Calc 57.57 Est GFR (MDRD) Af Amer 88 Est GFR (MDRD) Non-Af 73 BUN/Creatinine Ratio 16.9 Glucose 99 Calcium 8.4 L Troponin I Triglycerides 95 Cholesterol 135 LDL Cholesterol 61 VLDL Cholesterol 19 HDL Cholesterol 55 POC Glucose [address] 04/26/21 11:43 IMPRESSION: Normal unenhanced CT scan of the brain. N.B. : The above Results were Read Back by Rudy Rosado MD to Martin Huston MD, and understanding confirmed on 04/26/2021 12:13:58 (ET). Electronically Signed: Rudy Rosado MD at 12:15 EDT Tel , Service support , ADDENDUM: 04/26/21 1222 IMPRESSION: Normal unenhanced CT scan of the brain. N.B. : The above Results were Read Back by Rudy Rosado MD to Martin Huston MD, and understanding confirmed on 04/26/2021 12:13:58 (ET). Electronically Signed: Rudy Rosado MD at 12:15 EDT Tel , Service support , Head/Neck CTA 04/26/21 11:43 IMPRESSION: 1. Bovine arch. 2. Mild (20%) carotid stenosis bilaterally. 3. Patent vertebral arteries bilaterally. 4. Intracranially normal without stenosis or aneurysm. Electronically Signed: Rudy Rosado MD at 12:34 EDT Tel , Service support , ADDENDUM: 04/26/21 1242 IMPRESSION: 1. Bovine arch. 2. Mild (20%) carotid stenosis bilaterally. 3. Patent vertebral arteries bilaterally. 4. Intracranially normal without stenosis or aneurysm. N.B. : The above Results were Read Back by Rudy Rosado MD to Martin Huston MD, and understanding confirmed on 04/26/2021 12:35:13 (ET). Electronically Signed: Rudy Rosado MD at 12:34 EDT Tel , Service support , Chest X-Ray 04/26/21 12:30 IMPRESSION: Normal x-ray examination of the chest. Electronically Signed: Rudy Rosado MD at 12:43 EDT Tel , Service support , Charges/Coding Visit Charges Inpatient E&M: 34278 Init Hosp L3
[2021-04-27] MEDS: Cholecalciferol (VIT D3) 25 MCG TABLET (1,000 UNITS) PO (09:45)
[2021-04-27] MEDS: Gabapentin 600 MG Tablet PO (09:45)
[2021-04-27] MEDS: Venlafaxine XR 75 MG Capsule PO ×2 (09:45→22:16)
[2021-04-27] MEDS: Calcium Carb/Vitamin D 1 TABLET Tablet PO (11:12)
[2021-04-27] MEDS: 0.9% Saline Lock 10 ML Syringe IV ×2 (11:48→21:59)
[2021-04-27] MEDS: LORazepam 2 MG/ML Syringe 1 MG IV (11:48)
--- NOTE | 2021-04-27 12:04 | MRI_ITS ---
STUDY: MRI BRAIN WITH AND WITHOUT CONTRAST REASON FOR EXAM: Female, 65 years old. Stroke -- Post TPA TECHNIQUE: Standardized multiplanar fat and water weighted pulse sequences were obtained. IV 17 cc dotarem was administered for the contrast portion of the examination. COMPARISON: CT 04/26/2021 FINDINGS: Normal size of the ventricles and extra-axial spaces for the patient''s age. Normal white matter tracts of the supratentorial brain. There is no evidence for recent intracranial ischemia or other cause of cytotoxic edema on diffusion weighted imaging (DWI). Normal T2* images of the brain without demonstrated susceptibility artifact. There is no demonstrated hemosiderin stain. Normal bilateral basal ganglia. Normal thalami. There is no extra-axial fluid accumulation. Normal flow voids within the major intracranial circulation suggesting patency by spin echo criteria. Normal venous enhancement. There is no enhancing intra-axial or extra-axial abnormality. Normal sella turcica, pituitary gland, infundibular stalk, optic chiasm and hypothalamus. Normal tectal plate and pineal gland. Normal midbrain, nathaly and medulla. Normal cerebellum. Normal basal cisterns. Normal bilateral temporal bones. Normal bilateral internal auditory canals. There are bilateral ocular lens implants with otherwise normal intraorbital contents. Normal visualized paranasal sinuses. Normal calvarium and skull base. Normal visualized soft tissue structures. Normal visualized upper cervical spine. MRI/Brain W/WO Contrast IMPRESSION: Normal unenhanced and enhanced MRI of the brain. Electronically Signed: Rudy Rosado MD at 14:40 EDT Tel , Service support ,
--- NOTE | 2021-04-27 12:58 | TELEMED_ITS ---
[facility] has confirmed receipt of a request for visit. This document confirms receipt of the order initiating the consult. To find the results of the consultation, please view the patient's reports for the scanned Telemed Consult.
--- NOTE | 2021-04-27 13:00 | PN.HOSP_ITS ---
Subjective Subjective Patient seen and examined. She she is doing much better today and is able to speak in complete sentences. She still has left-sided weakness. Review of systems otherwise negative. SHe has remained hemodynamically stable. Objective Data Objective Data Vital Signs: Vital Signs Temp Pulse Resp BP Pulse Ox 98.1 F 80 18 130/68 H 92 04/27/21 08:00 04/27/21 12:57 04/27/21 12:57 04/27/21 12:57 04/27/21 12:57 Oxygen Delivery Method Room Air Weight: 211 lb 3.21 oz Body Mass Index (BMI) 35.6 Intake & Output: Intake and Output for Last 24 Hours 04/25/21 04/26/21 04/27/21 23:59 23:59 23:59 Intake Total 2527.2 / 2877.2 350 / 350 Output Total 650 / 850 2400 / 2400 Balance 1877.2 / 2027.2 -2049 / -2049 Lab / Micro Data Result Diagrams: 04/27/21 04:02 04/27/21 04:02 Labs: Laboratory Results - last 24 hr 04/26/21 04/26/21 04/26/21 20:00 20:00 22:08 WBC RBC Hgb 13.1 Hct 39.2 MCV MCH MCHC RDW Std Deviation RDW Coeff of Tamika Plt Count MPV Immature Gran % (Auto) Neut % (Auto) Lymph % (Auto) [place] % (Auto) Eos % (Auto) Baso % (Auto) Absolute Neuts (auto) Absolute Lymphs (auto) Nucleated RBC % Sodium Potassium Chloride Carbon Dioxide Anion Gap BUN Creatinine Estim Creat Clear Calc Est GFR (MDRD) Af Amer Est GFR (MDRD) Non-Af BUN/Creatinine Ratio Glucose Calcium Troponin I < 0.015 Triglycerides Cholesterol LDL Cholesterol VLDL Cholesterol HDL Cholesterol POC Glucose 93 04/27/21 04/27/21 04:02 04:02 WBC 4.3 L RBC 3.93 L Hgb 12.3 Hct 36.5 L MCV 92.9 MCH 31.3 MCHC 33.7 RDW Std Deviation 44.8 H RDW Coeff of Tamika 13.2 Plt Count 163 MPV 9.7 Immature Gran % (Auto) 0.200 Neut % (Auto) 67.2 Lymph % (Auto) 20.7 [place] % (Auto) 11.2 H Eos % (Auto) 0.2 Baso % (Auto) 0.5 Absolute Neuts (auto) 2.9 Absolute Lymphs (auto) 0.89 Nucleated RBC % 0 Sodium 141 Potassium 3.8 Chloride 107 Carbon Dioxide 29.0 Anion Gap 5 BUN 14 Creatinine 0.83 Estim Creat Clear Calc 57.57 Est GFR (MDRD) Af Amer 88 Est GFR (MDRD) Non-Af 73 BUN/Creatinine Ratio 16.9 Glucose 99 Calcium 8.4 L Troponin I Triglycerides 95 Cholesterol 135 LDL Cholesterol 61 VLDL Cholesterol 19 HDL Cholesterol 55 POC Glucose Radiography Diagnostic Testing: Radiology Impression Echocardiogram 04/26/21 14:54 Interpretation Summary The estimated ejection fraction is 60 %. Unable to assess diastolic dysfunction. There is moderate mitral annular calcification. Ordering Physician: Estefany Hatfield Referring Physician: Gold Conrad Performed By: Inge Bañuelos RDCS, RVT Physical Exam Const alert, oriented x3 and no apparent distress Constitutional Narrative: aphasic General Appearance: cooperative Exam Limitations: no limitations HEENT head/scalp atraumatic and hearing grossly normal bilaterally Head and Scalp: normocephalic Eyes PERRL, EOMs intact bilaterally and conjunctivae normal Neck no lymphadenopathy, supple, no JVD and no carotid bruits Resp normal respiratory effort, no retractions, no use of accessory muscles and clear to auscultation bilaterally Cardio regular rate, regular rhythm, S1 normal heart sound, S2 normal heart sound and no murmurs GI normal to inspection, nondistended, normoactive bowel sounds, soft to palpation, non-tender and non-distended Extremity normal to inspection, full ROM and no clubbing, cyanosis or edema Skin no rashes or lesions noted Neuro Neuro Narrative: expressive aphasia has resolved. Power in LUE is 3/5, and in LLE is 2/5. Facial droop has resolved. Sensorium / Orientation: awake and alert Assessment & Plan Assessment/Plan (1) Acute ischemic stroke: PLAN: #Acute left sided weakness and aphasia due to probable stroke * S/p TPA administration * expressive aphasia and left facial droop have resolved. LEft sided weakness persists * CT of the brain was negative for any evidence of ischemia or hemorrhage * CTA of the head and neck showed a bovine arch and mild 20% carotid stenosis bilaterally with patent vertebral arteries and intracranially normal arteries without stenosis or aneurysm * MRI of the brain done, 24 hours after tPA administration * will get [facility] neurology review- MRi was negative, recommends MRI of cervical, lumbar and thoracic spines without contrast. * to start aspirin, plavix after review by neurology * on high intensity statin * lipid panel WNL, with LDL of 61 * A1C is pending * 2D echo showed EF of 60%, with moderate mitral annular calcification. unable to assess diastolic dysfunction * #Hypothyroidism: On Synthroid #Hyperlipidemia: on high intensity statin #Depression: On venlafaxine 75 mg twice daily. DVT prophylaxis: SCDs. No anticoagulation as patient has received TPA CODE STATUS: Full code * Charges/Coding Visit Charges Inpatient E&M: 56473 Subs Hosp L2
--- NOTE | 2021-04-27 15:10 | CASEMGMT ---
Addendum entered by Kala Maldonado 04/27/21 15:52: DME: States has the following DME: shower chair, rollator, RTS, grab bars. Pt states no need for further DME at this time. Original Note: RN PEYTON DEFENSIVE LINE COACH CM to room to meet with patient for initial transition planning/care coordination assessment. RN PEYTON introduced self and role at [facility]. Pt voices understanding and consents to assessment at this time. Pt sitting up in chair in room in no distress at this time. Pt is A/O at this time and answers all questions appropriately. Care providers, pharmacy, and demographics verified/updated at this time. PCP: Gold Conrad Specialists: none Preferred Pharmacy:[facility] Insurance: [facility] PPO Prescription Benefit: Yes Living Will/HPOA: Has completed by LW and HPOA. POA is her daughter, Jelly LNOK: , Brennen (Not listed on demographics/does not hear well). Daughter/POA: Jelly. Son, Andre. Living Arrangements: Lives w/her in mobile home w/ramp entrance. Independ w/ ADL's. Pt/ share home mgmt tasks. Transportation: Pt/. DME: States has the following DME: Pt states no need for further DME at this time. HHC/SNF: Hx SNF: [facility] after Gastric Bypass surgery. No hx of HHC. Discussed possible options of RU/SNF vs Home w/HHC. Pt also inquired about OP therapy and this was discussed as well. Pt states, That's a hard decison to make. She states she prefers to return home, if possible, and would like to see take some time to think about it before making a decision. CM/SW to follow PLAN: TBD by course of treatment and progress w/therapy. Ed BSN ABE TODD
--- NOTE | 2021-04-27 17:34 | NURSING ---
1730 patient sent down to [facility]
[2021-04-27 18:09] LABS: Hemoglobin A1c 5.1 % (3.8-5.6)
[2021-04-27 18:10] LABS: Bedside Glucose 108 mg/dL (70-110)
[2021-04-27] MEDS: Atorvastatin Calcium 80 MG Tablet PO (22:04)
[2021-04-27 23:00] LABS: Bedside Glucose 84 mg/dL (70-110)
[2021-04-28] VITALS (10 sets, daily range): BP systolic 103–129; BP diastolic 50–73; PULSE 64–96; RESP 16–18; TEMP 36.6–37.2; O2SAT 94–97; BMI 35.6
--- NOTE | 2021-04-28 02:16 | NURSING ---
NIH completed late due to attending to another patient have difficulty breathing.
--- NOTE | 2021-04-28 05:55 | MRI_ITS ---
STUDY: MRI THORACIC SPINE WITHOUT CONTRAST REASON FOR EXAM: Female, 65 years old. Left-sided weakness and flaccidity x1 day. TECHNIQUE: Standardized fat and water weighted pulse sequences were obtained in the sagittal and axial planes. Patient unable to hold still despite medication, immobilization and medication. COMPARISON: None. FINDINGS: Normal kyphosis of the thoracic spine. There is no substantial scoliosis. T1-2, T2-3, T3-4, T4-5, T5-6, T6-7, T7-8, T8-9, T9-10, T10-11, T11-12: Minimal anterior wedging of the upper T7 vertebral body is presumably from remote injury. T8 and T11 benign vertebral body hemangiomas. Small right posterior paramedian disc protrusion at T7-T8 disc space level. This touches the right ventral cord surface without definite cord displacement. Normal central canal and intervertebral neural foramina. Normal visualized thoracic cord. Normal conus medullaris that terminates at the upper L1 vertebral body level. The soft tissue structures are unremarkable. MRI/Spine Thoracic (Routine) IMPRESSION: 1. Right T7-T8 posterior paramedian disc protrusion touching the right ventral cord surface without cord compression or displacement. 2. T8 and T11 benign vertebral body hemangiomas. 3. Mild anterior wedging of the upper body is presumably from remote injury. Electronically Signed: Jaime Lopez MD at 16:02 EDT , Service support ,
--- NOTE | 2021-04-28 05:55 | MRI_ITS ---
HISTORY: LEFT weakness, flacciditypt couid not hold still despite education, immobilization and medication. TECHNIQUE: Multiplanar and multisequence MR images of the lumbar spine. IV Contrast dosage and agent: None. # of images incl. paperwork: 126. COMPARISON: 03/31/2014. FINDINGS: VERTEBRAE: Vertebral body heights maintained. Hemangiomas noted in the lower thoracic and L4 vertebral bodies. Degenerative bone marrow endplate changes at L2-3 and L5-S1. ALIGNMENT: Chronic mild anterolisthesis of L4-5. CONUS: Normal morphology and position at L1. SOFT TISSUES: Mild posterior subcutaneous edema. No paraspinal fluid collection. INTERVERTEBRAL DISCS: L1-2: Minimal disc bulge and facet arthropathy without significant central canal stenosis. Very mild bilateral foraminal narrowing. L2-3:Mild disc bulge and facet arthropathy resulting in mild central canal stenosis and bilateral foraminal narrowing. L3-4: Mild disc bulge with facet arthropathy resulting in minimal narrowing of the thecal sac and mild right greater than left foraminal narrowing. L4-5: Mild disc bulge with facet arthropathy resulting in minimal narrowing of thecal sac and mild bilateral foraminal narrowing. L5-S1: Decreased size of right paracentral disc extrusion with inferior migration now measuring approximately 6 x 13 x 14 mm. Disc extrusion posteriorly displaces and effaces the right S1 nerve root with extension into the lateral recess and mild central canal stenosis. Facet arthropathy with mild bilateral foraminal narrowing. MRI/Spine Lumbar (Routine) IMPRESSION: Mildly decreased size of right paracentral disc extrusion with inferior migration at L5-S1. Right nerve root impingement and mild spinal canal stenosis at this level. Multilevel degenerative disc disease as described above. at 1620 Reported and signed by: Elmira You MD Electronically Signed: Elmira You MD at 16:19 EDT Tel , Service support ,
--- NOTE | 2021-04-28 05:55 | MRI_ITS ---
HISTORY: left sided weakness, flaccidity. pt couid not hold still despite education, immobilization and medication. TECHNIQUE: Routine MRI of the cervical spine was performed. # of images incl. paperwork: 246. IV Contrast dosage and agent: None. COMPARISON: CTA neck 04/26/2021. FINDINGS: Motion artifact lowers the sensitivity of examination VERTEBRAE: Vertebral body heights maintained. No significant bone marrow signal abnormality seen. ALIGNMENT: Straightening of the cervical lordosis without significant anterior or posterior subluxation. CORD: No convincing cord signal abnormality. SOFT TISSUES: No prevertebral fluid collection. INTERVERTEBRAL DISCS: Mild posterior disc bulge ossified complexes with uncovertebral and facet arthropathy at multiple levels. C2-3: Mild central canal stenosis and left foraminal narrowing. C3-4: Mild central canal stenosis. C4-5: Minimal narrowing of the thecal sac. C5-6: Mild central canal stenosis. C6-7: Very mild spinal canal stenosis. MRI/Spine Cervical (Routine) IMPRESSION: Limited examination due to motion artifact. Mild degenerative disc disease resulting in mild spinal canal stenosis as above. at 1605 Reported and signed by: Elmira You MD Electronically Signed: Elmira You MD at 16:04 EDT Tel , Service support ,
[2021-04-28] MEDS: Levothyroxine 75 MCG Tablet PO (06:55)
[2021-04-28 07:00] LABS: Bedside Glucose 93 mg/dL (70-110)
[2021-04-28] MEDS: Gabapentin 600 MG Tablet PO (08:37)
[2021-04-28] MEDS: Cholecalciferol (VIT D3) 25 MCG TABLET (1,000 UNITS) PO (08:37)
[2021-04-28] MEDS: Venlafaxine XR 75 MG Capsule PO ×2 (08:37→22:09)
[2021-04-28] MEDS: LORazepam 2 MG/ML Syringe 1 MG IV (09:45)
[2021-04-28] MEDS: 0.9% Saline Lock 10 ML Syringe IV (09:45)
[2021-04-28] MEDS: Calcium Carb/Vitamin D 1 TABLET Tablet PO (11:37)
--- NOTE | 2021-04-28 11:40 | NURSING ---
NIH & MRI late d/t patient being off unit for MRI
[2021-04-28 11:46] LABS: Bedside Glucose 87 mg/dL (70-110)
--- NOTE | 2021-04-28 16:39 | PN.HOSP_ITS ---
Subjective Subjective Patient seen and examined. She still complains of some left lower extremity weakness today. Left upper extremity weakness is improving. She has no other complaints aneurysms otherwise negative. She has remained hemodynamically stable. Objective Data Objective Data Vital Signs: Vital Signs Temp Pulse Resp BP Pulse Ox 98.2 F 87 16 123/73 H 97 04/28/21 11:38 04/28/21 14:56 04/28/21 11:38 04/28/21 11:38 04/28/21 11:38 Oxygen Delivery Method Room Air Weight: 203 lb 0.732 oz Body Mass Index (BMI) 35.6 Intake & Output: Intake and Output for Last 24 Hours 04/26/21 04/27/21 04/28/21 23:59 23:59 23:59 Intake Total 2527.2 / 2877.2 850 / 850 480 / 480 Output Total 650 / 850 3200 / 3200 1050 / 1050 Balance 1877.2 / 2027.2 -2350 / -2350 -570 / -570 Lab / Micro Data Result Diagrams: 04/27/21 04:02 04/27/21 04:02 Labs: Laboratory Results - last 24 hr 04/27/21 04/27/21 04/27/21 04:02 16:57 22:10 Hemoglobin A1c 5.1 POC Glucose 108 84 04/28/21 04/28/21 06:53 11:42 Hemoglobin A1c POC Glucose 93 87 Radiography Diagnostic Testing: Radiology Impression Cervical Spine MRI 04/28/21 05:55 IMPRESSION: Limited examination due to motion artifact. Mild degenerative disc disease resulting in mild spinal canal stenosis as above. at 1605 Reported and signed by: Elmira You MD Electronically Signed: Elmira You MD at 16:04 EDT Tel , Service support , Lumbar Spine MRI 04/28/21 05:55 IMPRESSION: Mildly decreased size of right paracentral disc extrusion with inferior migration at L5-S1. Right nerve root impingement and mild spinal canal stenosis at this level. Multilevel degenerative disc disease as described above. at 1620 Reported and signed by: Elmira You MD Electronically Signed: Elmira You MD at 16:19 EDT Tel , Service support , Thoracic Spine MRI 04/28/21 05:55 IMPRESSION: 1. Right T7-T8 posterior paramedian disc protrusion touching the right ventral cord surface without cord compression or displacement. 2. T8 and T11 benign vertebral body hemangiomas. 3. Mild anterior wedging of the upper body is presumably from remote injury. Electronically Signed: Jaime Lopez MD at 16:02 EDT , Service support , Physical Exam Const alert, oriented x3 and no apparent distress Constitutional Narrative: aphasic General Appearance: cooperative Exam Limitations: no limitations HEENT head/scalp atraumatic and hearing grossly normal bilaterally Head and Scalp: normocephalic Eyes PERRL, EOMs intact bilaterally and conjunctivae normal Neck no lymphadenopathy, supple, no JVD and no carotid bruits Resp normal respiratory effort, no retractions, no use of accessory muscles and clear to auscultation bilaterally Cardio regular rate, regular rhythm, S1 normal heart sound, S2 normal heart sound and no murmurs GI normal to inspection, nondistended, normoactive bowel sounds, soft to palpation, non-tender and non-distended Extremity normal to inspection, full ROM and no clubbing, cyanosis or edema Peripheral Pulses: Yes pulses 2+ throughout Skin no rashes or lesions noted Neuro oriented x3 Neuro Narrative: expressive aphasia has resolved. Power in LUE is 4/5, and in LLE is 2/5. Facial droop has resolved. Sensorium / Orientation: awake and alert Assessment & Plan Assessment/Plan (1) Acute ischemic stroke: PLAN: #Acute left sided weakness and aphasia due to probable stroke * S/p TPA administration * expressive aphasia and left facial droop have resolved. * LUE weakness is much better, with power at 4/5. LLE power is 2/5 still * CT of the brain was negative for any evidence of ischemia or hemorrhage * CTA of the head and neck showed a bovine arch and mild 20% carotid stenosis bilaterally with patent vertebral arteries and intracranially normal arteries without stenosis or aneurysm * MRi was negative, recommends MRI of cervical, lumbar and thoracic spines without contrast-these showed mild cervical spinal stenosis and mildly decreased size of right paracentral disc extrusion with inferior migration at L5-S1 with degenerative disc disease and right T7-T8 posterior paramedian disc protrusion touching the right ventral cord surface without cord compression or displacement as well as benign vertebral body hemangiomas at T8 and T11 * aspirin 81mg daily. Hold off on plavix as there is no evidence3 of a stroke * on high intensity statin * lipid panel WNL, with LDL of 61 * A1C is 5.1 * 2D echo showed EF of 60%, with moderate mitral annular calcification. unable to assess diastolic dysfunction * #Hypothyroidism: On Synthroid #Hyperlipidemia: on high intensity statin #Depression: On venlafaxine 75 mg twice daily. DVT prophylaxis: lovenox CODE STATUS: Full code Disposition: Additional therapy recommended in a rehab unit by physical therapy. Case management to facilitate placement. Charges/Coding Visit Charges Inpatient E&M: 34831 Subs Hosp L2
--- NOTE | 2021-04-28 20:25 | CASEMGMT ---
ROBERT Note Referral Source: [employer] Copper [employer]ater and Weekend casemanager Referral Reason: Possible Stroke and discharge plan for rehab. ROBERT reviewed patients diagnosis with manjeet and patient did not have stroke thus this check writer salesperson did not complete the PHQ9 with her. SW met with patient and discussed rehab for patient. Patient said that she wants to go home. SW talked to patient about safety concerns. Patient said it's still my decisions however, this check writer salesperson encouraged her to speak to her family. Patient reports she would like to go to rehab at [facility] ([facility]) as staff have been nice or [facility] as she was previously there for 40 days and [facility] as it is close to her home. Patient provided her with list of SNF in [facility]. ROBERT sent email to Valorie Updating her. Plan: To be determined. Gwen KANG
[2021-04-28] MEDS: Atorvastatin Calcium 80 MG Tablet PO (22:09)
[2021-04-29] VITALS (8 sets, daily range): BP systolic 111–129; BP diastolic 66–74; PULSE 56–88; RESP 14–18; TEMP 36.4–37.2; O2SAT 94–96; BMI 35.6
[2021-04-29] MEDS: Levothyroxine 75 MCG Tablet PO (05:42)
[2021-04-29] MEDS: Venlafaxine XR 75 MG Capsule PO ×2 (09:16→21:48)
[2021-04-29] MEDS: Gabapentin 600 MG Tablet PO (09:16)
[2021-04-29] MEDS: Calcium Carb/Vitamin D 1 TABLET Tablet PO (09:17)
[2021-04-29] MEDS: Cholecalciferol (VIT D3) 25 MCG TABLET (1,000 UNITS) PO (09:17)
--- NOTE | 2021-04-29 12:52 | PN.HOSP_ITS ---
Subjective Subjective Patient seen and examined. She has no complaints today and feels well. Review of systems otherwise negative. She does have some mild left lower extremity weakness but review of systems is otherwise negative. Objective Data Objective Data Vital Signs: Vital Signs Temp Pulse Resp BP Pulse Ox 97.9 F 88 14 120/69 95 04/29/21 09:03 04/29/21 09:03 04/29/21 09:03 04/29/21 09:03 04/29/21 09:03 Oxygen Delivery Method Room Air Weight: 203 lb 0.732 oz Body Mass Index (BMI) 35.6 Intake & Output: Intake and Output for Last 24 Hours 04/27/21 04/28/21 04/29/21 23:59 23:59 23:59 Intake Total 850 / 850 960 / 1260 540 / 540 Output Total 3200 / 3200 1400 / 2000 900 / 900 Balance -2350 / -2350 -440 / -740 -360 / -360 Lab / Micro Data Result Diagrams: 04/27/21 04:02 04/27/21 04:02 Radiography Diagnostic Testing: Radiology Impression Cervical Spine MRI 04/28/21 05:55 IMPRESSION: Limited examination due to motion artifact. Mild degenerative disc disease resulting in mild spinal canal stenosis as above. at 1605 Reported and signed by: Elmira You MD Electronically Signed: Elmira You MD at 16:04 EDT Tel , Service support , Lumbar Spine MRI 04/28/21 05:55 IMPRESSION: Mildly decreased size of right paracentral disc extrusion with inferior migration at L5-S1. Right nerve root impingement and mild spinal canal stenosis at this level. Multilevel degenerative disc disease as described above. at 1620 Reported and signed by: Elmira You MD Electronically Signed: Elmira You MD at 16:19 EDT Tel , Service support , Thoracic Spine MRI 04/28/21 05:55 IMPRESSION: 1. Right T7-T8 posterior paramedian disc protrusion touching the right ventral cord surface without cord compression or displacement. 2. T8 and T11 benign vertebral body hemangiomas. 3. Mild anterior wedging of the upper body is presumably from remote injury. Electronically Signed: Jaime Lopez MD at 16:02 EDT , Service support , Physical Exam Const alert, oriented x3 and no apparent distress Constitutional Narrative: aphasic General Appearance: cooperative Exam Limitations: no limitations HEENT head/scalp atraumatic and hearing grossly normal bilaterally Head and Scalp: normocephalic Eyes PERRL, EOMs intact bilaterally and conjunctivae normal Neck no lymphadenopathy, supple, no JVD and no carotid bruits Resp normal respiratory effort, no retractions, no use of accessory muscles and clear to auscultation bilaterally Cardio regular rate, regular rhythm, S1 normal heart sound, S2 normal heart sound and no murmurs GI normal to inspection, nondistended, normoactive bowel sounds, soft to palpation, non-tender and non-distended Extremity normal to inspection, full ROM and no clubbing, cyanosis or edema Skin no rashes or lesions noted Neuro oriented x3 and CN's II-XII intact bilaterally Neuro Narrative: expressive aphasia has resolved. Power in LUE is 4/5, and in LLE is 2/5. Facial droop has resolved. Sensorium / Orientation: awake and alert Psych affect normal Assessment & Plan Assessment/Plan (1) Acute ischemic stroke: PLAN: #Acute left sided weakness and aphasia due to probable stroke * S/p TPA administration * expressive aphasia and left facial droop have resolved. * LUE weakness is much better, with power at 4/5. LLE power is 2/5 still * CT of the brain was negative for any evidence of ischemia or hemorrhage * CTA of the head and neck showed a bovine arch and mild 20% carotid stenosis bilaterally with patent vertebral arteries and intracranially normal arteries without stenosis or aneurysm * MRi was negative, recommends MRI of cervical, lumbar and thoracic spines without contrast-these showed mild cervical spinal stenosis and mildly decreased size of right paracentral disc extrusion with inferior migration at L5-S1 with degenerative disc disease and right T7-T8 posterior paramedian disc protrusion touching the right ventral cord surface without cord compression or displacement as well as benign vertebral body hemangiomas at T8 and T11 * aspirin 81mg daily. * on high intensity statin * lipid panel WNL, with LDL of 61 * A1C is 5.1 * 2D echo showed EF of 60%, with moderate mitral annular calcification. unable to assess diastolic dysfunction * #Hypothyroidism: On Synthroid #Hyperlipidemia: on high intensity statin #Depression: On venlafaxine 75 mg twice daily. DVT prophylaxis: lovenox CODE STATUS: Full code Disposition:awaiting placement for further therapy Charges/Coding Visit Charges Inpatient E&M: 38186 Subs Hosp L2
[2021-04-29] MEDS: Atorvastatin Calcium 80 MG Tablet PO (21:48)
[2021-04-29] MEDS: Nystatin Powder 15gm Bottle 1 APPLIC TOPICAL (21:48)
[2021-04-30 03:00] VITALS: PULSE 71
[2021-04-30 03:10] VITALS: BP 109/66; PULSE 68; RESP 14; TEMP 37.1; O2SAT 96
[2021-04-30] MEDS: Levothyroxine 75 MCG Tablet PO (05:28)
[2021-04-30 07:01] VITALS: PULSE 66
[2021-04-30 09:10] VITALS: BP 104/67; PULSE 66; RESP 18; TEMP 36.8; O2SAT 96
--- NOTE | 2021-04-30 09:30 | CASEMGMT ---
ROBERT met with patient. Introduced self and role at [facility]. SW told her the two units at [facility] are full. Patient said she wants to go home at discharge. She would rather do therapy at home or go to [facility] for therapy. SW did provide 2 lists of SNF providers including quality and resource use data and consistent with the patient?s preferred geographic region, medical needs, and insurance network. SW highlighted facilities that take patient's insurance. She said she wanted to see what her insurance covered. ROBERT told her that if she chose to go to a SNF she would stay here at [facility] until her insurance approved her to go. ROBERT told her that Medicare covers days 1-20 at 100% and after that there are co-pays. She again said she wants to go home. ROBERT notified ABE TODD that patient now wants home health or outpatient therapy. Michell Manning ALTITUDE CHAMBER TECHNICIAN TANIA
[2021-04-30] MEDS: Acetaminophen 325 MG Tablet 650 MG PO (09:49)
[2021-04-30] MEDS: Venlafaxine XR 75 MG Capsule PO (09:49)
[2021-04-30] MEDS: Cholecalciferol (VIT D3) 25 MCG TABLET (1,000 UNITS) PO (09:49)
[2021-04-30] MEDS: Gabapentin 600 MG Tablet PO (09:49)
[2021-04-30] MEDS: Calcium Carb/Vitamin D 1 TABLET Tablet PO (09:49)
[2021-04-30] MEDS: Nystatin Powder 15gm Bottle 1 APPLIC TOPICAL (09:50)
--- NOTE | 2021-04-30 10:04 | CASEMGMT ---
SW completed a PHQ 9 with patient as per physician she did have a Stroke. She scored a 1 which indicates minimal depression. Michell MARIN
--- NOTE | 2021-04-30 10:12 | CASEMGMT ---
ROBERT gave patient a [facility] Stroke Support Group pamphlet. She was in agreement with being placed on the mailing list for Stroke Support Group. Michell MARIN
[2021-04-30 12:59] VITALS: BMI 35.6
--- NOTE | 2021-04-30 14:28 | PCM.DC.SUM ---
Providers Date of Admission: 04/26/21 Primary Care Physician: Dr. Gold Conrad, DO Consultations 04/26/21 11:51 Consult: Shot Dropper / Pulmonary Medicine Routine Consulting Provider: Pulmonary Medicine [facility] Reason for Consult: stroke for alteplase EMERGENT Consult: No Notified: Yes Date Notified: 04/26/21 Time Notified: 14:57 Method of Notification: Text Comments:: If admitted, Hospitalist will consult Shot Dropper 04/26/21 14:54 Consult: Shot Dropper / Pulmonary Medicine Routine Consulting Provider: Pulmonary Medicine [facility] Reason for Consult: acute CVA s/p tPA EMERGENT Consult: No Notified: Yes Date Notified: 04/26/21 Time Notified: 13:02 Method of Notification: Text Reason For Visit: ACUTE CVA S/P TPA Diagnosis Discharge Diagnosis (1) Acute ischemic stroke: Status: Acute Code(s): I63.9 - Cerebral infarction, unspecified Medications at Discharge Home Medications Probiotic Acidophilus 1,000 mmu cells PO DAILY 04/26/21 biotin 1,000 mcg PO DAILY 04/26/21 calcium carbonate-vitamin D3 [Calcium 600 + D(3)] 1 tab PO DAILY 04/26/21 cholecalciferol (vitamin D3) 25 mcg PO DAILY 04/26/21 dexamethasone 1 drp EACH EYE TID 04/26/21 gabapentin 600 mg PO DAILY 04/26/21 levothyroxine 75 mcg PO DAILY 04/26/21 lovastatin 20 mg PO DAILY 04/26/21 pantoprazole 40 mg PO DAILY 04/26/21 venlafaxine 75 mg PO BID 04/26/21 aspirin [Enteric Coated Aspirin] 81 mg PO DAILY #30 tab 04/30/21 Hospital Course Operations None Procedures 2-D Echocardiogram and - (TPA given) Summary of Care Provided Minutes Spent on Discharge: 41 Hospital Course: Mrs. Miranda is a 65-year-old white female who presented to the emergency department at [facility] on 04/26/2021 with acute onset left upper and lower extremity weakness, left facial droop and expressive aphasia with difficulty following commands. Stroke team was activated and per the recommendation of [facility] telestroke she was given tPA for suspected acute ischemic stroke. Her symptoms started at 11 AM and TPA was initiated at 1206. She was admitted to the ICU. MRI of her brain was performed 24 hours after TPA was initiated and it showed a normal unenhanced and enhanced MRI of the brain. CTA showed mild (20%) carotid stenosis bilaterally with patent vertebral arteries. Complete spine MRIs were performed per neurology recommendations and showed mild cervical stenosis, mildly right paracentral disc extrusion with inferior migration at L5-S1 and degenerative disc disease and a right T7-T8 posterior paramedian disc protrusion that was touching the right ventral cord surface without cord compression or displacement. Of note she also had a benign vertebral body hemangioma at T8 and T11. A 2D echo was performed and showed an EF of 60% with no wall motion abnormalities. A lipid panel was obtained and showed a total cholesterol 135, LDL of 61, HDL 55 and triglycerides of 95. She was on lovastatin 20 mg daily prior to admission and she was discharged on the same dose. Tele-neurology was also consulted and recommended the initiation of aspirin and outpatient neurology follow-up after discharge. Patient speech issues and left upper extremity weakness for markedly improved and she had significant improvement in her left lower extremity weakness although this remained weaker than the rest of her hemibody. Inpatient rehab was recommended by therapy services at discharge but the patient wanted to discharge home and follow-up with outpatient therapy. She does have assistive devices at home and she lives with her . A referral for outpatient/home health was given and she states she will follow up with them. She is to continue aspirin 81 mg daily at discharge and will be scheduled for an event monitor. Physical Exam Const alert and oriented x3 Constitutional Narrative: Pleasant upper middle-aged white female, sitting up in bed, on the phone but hangs up upon my arrival, appears comfortable General Appearance: cooperative, comfortable, well kempt and well developed HEENT normocephalic, head/scalp atraumatic, hearing grossly normal bilaterally, moist oral mucous membranes and oropharynx normal Eyes PERRL, EOMs intact bilaterally and conjunctivae normal Neck supple and no carotid bruits Neck Narrative: Trachea midline Resp normal respiratory effort, no retractions, no use of accessory muscles and clear to auscultation bilaterally Cardio regular rate, regular rhythm, S1 normal heart sound, S2 normal heart sound, no murmurs, no rub, no gallops, no clicks and no JVD GI normal to inspection, nondistended, normoactive bowel sounds, soft to palpation, non-tender and non-distended Extremity normal to inspection and no clubbing, cyanosis or edema Extremity Narrative: 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, decreased knee range of motion Skin no rashes or lesions noted, no wounds, skin turgor normal and no jaundice Skin Narrative: Scattered ecchymosis Neuro oriented x3, CN's II-XII intact bilaterally and moves all extremities Neuro Narrative: Left lower extremity weakness, no pronator drift bilateral upper extremities Sensorium / Orientation: awake, alert, oriented to person, oriented to place and oriented to time Speech: speech normal Psych affect normal Weight / BMI Weight Weight: 90.718 kg Body Mass Index (BMI) 35.6 ABG / Lab / Microbiology Data Result Diagrams: 04/27/21 04:02 04/27/21 04:02 Meaningful Use Info Meaningful Use Diagnoses (Choose all that apply): Ischemic CVA CVA Therapy Assessed for PT,OT and/or ST?: Yes Ischemic Stroke Antithrombotic order at d/c?: Yes Dx of Atrial fib/flutter?: No Anticoagulant at discharge?: No Reason anticoagulant not ordered: Treatment not Indicated Statins at discharge?: Yes Primary Dx Acute Ischemic CVA?: Yes IV tPA ordered during stay?: Yes Discharge Plan Admission Admit Date/Time: 04/26/21 13:06 Primary Reason for Your Visit: Acute stroke Attending Provider: Daria Almaguer Primary Care Provider: Gold Conrad Consulting Providers: Leonard Hutchison ; Hansel Paige ; Nella Fermin BUNG SEWER Discharge Orders/Prescriptions Prescriptions: New aspirin [Enteric Coated Aspirin] 81 mg tablet,delayed release (DR/EC) 81 mg PO DAILY Qty: 30 RF: 11 Continued venlafaxine 75 mg Capsule,Extended Release 24hr 75 mg PO BID RF: 0 gabapentin 600 mg Tablet 600 mg PO DAILY RF: 0 pantoprazole 40 mg Tablet,Delayed Release (Dr/Ec) 40 mg PO DAILY RF: 0 dexamethasone 0.1 % Drops,Suspension 1 drp EACH EYE TID RF: 0 lovastatin 20 mg Tablet 20 mg PO DAILY RF: 0 cholecalciferol (vitamin D3) 25 mcg (1,000 unit) Tablet 25 mcg PO DAILY RF: 0 calcium carbonate-vitamin D3 [Calcium 600 + D(3)] 600 mg(1,500mg) -400 unit Tablet 1 tab PO DAILY RF: 0 levothyroxine 75 mcg Capsule 75 mcg PO DAILY RF: 0 biotin 1,000 mcg Tablet,Chewable 1,000 mcg PO DAILY RF: 0 Probiotic Acidophilus 1.5 mg (250 million cell) Capsule 1,000 mmu cells PO DAILY RF: 0 Other Ambulatory Orders: 30-Day Event Recorder (Routine) Location: None Selected Ordered By: Dr. Daria Almaguer Referrals / Follow Up: Gold Conrad DO [Primary Care Provider] - In 1 Week Maikol Casiano MD [STAFF PHYSICIAN] - Within 1 Month Care Physician,No Primary [NON-STAFF] - Disposition Disposition (needs filled in before D/C Order can be placed): Home, self care Charges/Coding Visit Charges Inpatient E&M: 61285 Disch Hosp
--- NOTE | 2021-04-30 14:47 | CASEMGMT ---
This RN CM to room to discuss discharge plan with pt and pt states she would like [facility] set up, declines C list and states no preference for [facility] agency. Message left for Angela at [facility] in regards to pt for SN, PT/OT and discharge. Order placed for same. CM to follow. Pt voices no further questions/concerns/needs. SStaten ABE CM
[2021-04-30 15:00] VITALS: PULSE 68
[2021-04-30 15:06] VITALS: BP 100/54; PULSE 70; RESP 18; TEMP 36.6; O2SAT 96
--- NOTE | 2021-04-30 15:30 | PCM.DC ---
Discharge Instructions Follow Up Care Test Results: Test results from this visit will be discussed in further detail at your follow-up appointment, if applicable. Discharge Plan Admission Admit Date/Time: 04/26/21 13:06 Primary Reason for Your Visit: Acute stroke Attending Provider: Daria Almaguer Primary Care Provider: Gold Conrad Consulting Providers: Leonard Hutchison ; Hansel Paige ; Nella Fermin SOCIAL SECURITY SPECIALIST Discharge Orders/Prescriptions Prescriptions: New aspirin [Enteric Coated Aspirin] 81 mg tablet,delayed release (DR/EC) 81 mg PO DAILY Qty: 30 RF: 11 Continued venlafaxine 75 mg Capsule,Extended Release 24hr 75 mg PO BID RF: 0 gabapentin 600 mg Tablet 600 mg PO DAILY RF: 0 pantoprazole 40 mg Tablet,Delayed Release (Dr/Ec) 40 mg PO DAILY RF: 0 dexamethasone 0.1 % Drops,Suspension 1 drp EACH EYE TID RF: 0 lovastatin 20 mg Tablet 20 mg PO DAILY RF: 0 cholecalciferol (vitamin D3) 25 mcg (1,000 unit) Tablet 25 mcg PO DAILY RF: 0 calcium carbonate-vitamin D3 [Calcium 600 + D(3)] 600 mg(1,500mg) -400 unit Tablet 1 tab PO DAILY RF: 0 levothyroxine 75 mcg Capsule 75 mcg PO DAILY RF: 0 biotin 1,000 mcg Tablet,Chewable 1,000 mcg PO DAILY RF: 0 Probiotic Acidophilus 1.5 mg (250 million cell) Capsule 1,000 mmu cells PO DAILY RF: 0 Other Ambulatory Orders: 30-Day Event Recorder (Routine) Location: None Selected Ordered By: Dr. Daria Almaguer Referrals / Follow Up: Gold Conrad DO [Primary Care Provider] - In 1 Week Maikol Casiano MD [STAFF PHYSICIAN] - Within 1 Month Care Physician,No Primary [NON-STAFF] - Disposition Disposition (needs filled in before D/C Order can be placed): Home, self care
--- NOTE | 2021-04-30 16:36 | CHAPLAIN ---
Type of Pastoral Visit ___ Initial Visit _x__ Follow-up Visit ___ On-call Visit ___ General Patient Visit ___ Spiritual Assessment ___ Family Conference ___ Bereavement ___ Rapid Response ___ Code Blue ___ Other (describe below) Pastoral Care Referral From ___ Patient _x__ Family ___ Nurse ___ Physician ___ House Steward/Stewardess ___ High Lift Operator ___ Other (describe below) Sacrament/Intervention _x__ Active listening ___ Anointing ___ Scientologist ___ Bereavement ___ Communion _x__ Jazmín exploration ___ ___ Life review _x__ Prayer ___ Reconciliation ___ Sacrament of Sick _x__ Supportive presence ___ Wedding ___ Other (describe below) Pastoral Comments
== END 2021-04-30 17:00 | disposition home health service (06) | DRG 62 ==
LOC: ED 13:02 → ICU 04-27 07:21 → PCU 04-27 21:24
PROVIDERS: Hospitalist; Student in an Organized Health Care Education/Training Program; Admitting Provider Family Medicine Geriatric Medicine; Emergency Provider Emergency Medicine; PCP Student in an Organized Health Care Education/Training Program; Visit Provider Internal Medicine
DX: I63.9 Cerebral infarction, unspecified (principal); G81.94 Hemiplegia, unspecified affecting left nondominant side; R47.01 Aphasia; R53.1 Weakness; R29.810 Facial weakness; E78.5 Hyperlipidemia, unspecified; K21.9 Gastro-esophageal reflux disease without esophagitis; E03.9 Hypothyroidism, unspecified; R29.725 NIHSS score 25; M48.02 Spinal stenosis, cervical region; M51.27 Other intervertebral disc displacement, lumbosacral region; M51.37 Other intervertebral disc degeneration, lumbosacral region; D18.09 Hemangioma of other sites; F32.9 Major depressive disorder, single episode, unspecified; Z79.899 Other long term (current) drug therapy; Z98.84 Bariatric surgery status; Z87.891 Personal history of nicotine dependence; Z79.82 Long term (current) use of aspirin
CPT/HCPCS: 70450; 70496; 70498; 70553; 71045; 72141; 72146; 72148; 80048; 80061; 82962; 83036; 84484; 85014; 85018; 85025; 85610; 85730; 92507; 92523; 92610; 93005; 93306; 97110; 97116; 97162; 97167; 97530; 97535; 97802; 99285; A9575; J2997; J7030; Q9957; Q9967; A4216; C8929; J3490

== ENCOUNTER 2025-10-13 17:20 | Inpatient (IN) | payer MEDICARE, SELFPAY ==
[2025-10-13 18:25] VITALS: BP 99/49; PULSE 80; RESP 17; TEMP 36.7; O2SAT 97
[2025-10-13 21:00] VITALS: PULSE 80; RESP 17; O2SAT 97; BMI 34.7
[2025-10-13] MEDS: Timolol 0.5% 5ML OPTH.BTL 1 DRP LEFT EYE (21:53)
[2025-10-13] MEDS: BRIMONIDINE 0.2% 5ML BOTTLE 1 DRP LEFT EYE (21:55)
[2025-10-13 23:26] VITALS: BMI 34.7
[2025-10-14] MEDS: BRIMONIDINE 0.2% 5ML BOTTLE 1 DRP LEFT EYE ×2 (05:34→20:58)
[2025-10-14] MEDS: Timolol 0.5% 5ML OPTH.BTL 1 DRP LEFT EYE ×2 (05:35→20:56)
[2025-10-14] MEDS: prednisoLONE eye drops (5 mL) 1 DROP OPTH.BTL 1 DRP LEFT EYE (05:41)
[2025-10-14 06:00] VITALS: BP 105/63; PULSE 66; RESP 15; TEMP 36.7; O2SAT 96
[2025-10-14 06:05] LABS: Hematocrit 38.2 % (37-47); Hemoglobin 12.7 g/dL (12.0-15.0); Immature Granulocytes Count 0.010 X10^3/uL (0.0-0.0); Mean Corp Hgb Conc 33.2 g/dL (32-36); Mean Corpuscular Volume 95.3 fL (81-99); Mean Platelet Vol. 10.4 fl (6.2-12.0); NRBC Flagged by Analyzer 0 % (0-5); Platelet Count 156 K/mm3 (150-450); RBC Distribution Width CV 13.2 % (11.6-14.6); RBC Distribution Width SD 46.4 fl (35.1-43.9); Red Blood Count 4.01 M/mm3 (4.2-5.4); White Blood Count 4.7 K/mm3 (4.4-11.0)
[2025-10-14 06:32] LABS: AST(SGOT) 36 U/L (<=31); Alanine Aminotransfer ALT/SGPT 36 U/L (<=34); Albumin, Serum 3.5 g/dL (3.4-4.8); Alkaline Phosphatase 59 U/L (35-104); Anion Gap 8 (5-15); BUN 24 mg/dL (4-19); BUN/Creat Ratio 28.8 RATIO (10-20); Calcium,Total 9.1 mg/dL (7.6-11.0); Carbon Dioxide 28.0 mmol/L (21.0-32.0); Chloride 105 mmol/L (98-108); Estimated Creatinine Clearance 61.77 ml/min (50-250); Globulin 2.2 g/dL (2.2-4.2); Glucose 97 mg/dL (70-99); Magnesium 2.2 mg/dL (1.5-2.2); Potassium 4.0 mmol/L (3.3-5.1)
[2025-10-14] MEDS: Aspirin E.C. 81 MG Tablet PO (07:51)
[2025-10-14] MEDS: Calcium Carb/Vitamin D 1 TABLET Tablet PO (07:51)
[2025-10-14] MEDS: Vitamin B Comp W-C Capsule 1 CAP PO (07:51)
[2025-10-14] MEDS: Senna/Docusate Sodium 1 Tablet 2 TABLET PO (07:51)
[2025-10-14] MEDS: Cholecalciferol (VIT D3) 25 MCG TABLET (1,000 UNITS) PO (07:51)
--- NOTE | 2025-10-14 08:19 | EX.PCM.HP.RE ---
HPI - General General Date of Admission: 10/13/25 Date of Service: 10/14/25 Chief Complaint: debility following stroke HPI Narrative JULIA MCLAUGHLIN, is a 70 F who presents inpatient rehab following stroke. I did review all notes, labs and documentation and synopsis is as follows: Patient presented to [facility] emergency department following rapid onset of strokelike symptoms on 10/05/2025. She did have left-sided deficits. CT without contrast as well as CTA of the head and neck were negative. Her NIH stroke score was 17. She then had a tele- neuro evaluation and received TNK 46 hours after onset of symptoms. She was then admitted to the [facility] intensive care unit. The following day she did have significant improvement in stroke symptoms. Patient then had a rapid response called on 10/07/2025 due to acute left-sided weakness with increasing NIH scores. Rapid response scored the NIH at 8. The previous NIH was 5. She did have a stat CT of the head which showed no abnormalities. Per documentation she was awake and alert but could not answer questions appropriately, she could follow some commands but had slurred speech and right facial palsy. She then was experiencing expressive aphasia. At that time she was noted to have pupils of 5 mm on the left and 3 mm on the right due to left eye glaucoma. On 0, per documentation, it was noted that she did have bruising over the facial area and had bumps on her head. At that time she did deny any falling it was unclear where the bruising had come from. Patient did have an MRI of the brain without contrast on 10/08/2025 which showed no acute intercranial abnormalities. She did have a few scattered foci of T2 flair hyperintensity within the bilateral cerebral white matter. They deemed those nonspecific and stated that it could be seen in the setting of chronic microvascular ischemic changes, migraine headaches or demyelinating diseases. Her repeat CT scan brain at 24 hours post was unremarkable for any acute intracranial abnormalities. CTA head and neck showed no large vessel vessel occlusions. Patient did receive a short duration of Plavix post second incident. Neurology did switch her back to aspirin as they did not feel that this was an aspirin failure as there was no acute processes noted on MRI. Patient then had an MRI of the C-spine showing moderate multilevel degenerative disc disease with disc bulges and endplate osteophytes. Mild central canal stenosis at C4-C5 and C5-C6 levels with minimal retrievable cord compression. She did have mild to moderate stenosis of the left neural foramen at C5-C6 and C6-C7. No abnormal cord signal. She did receive a neurosurgery consult given the findings along with left upper and left lower extremity weakness. She did have an echocardiogram during her admission which showed left ventricle is an EF of 55 to 60% with no regional wall abnormalities. Mitral valve annulus is severely calcified and leaflets are mildly thickened with mild regurgitation. The right ventricle RV systolic pressure is 27 mmHg. Right atrium pressure is 3 mmHg. She showed no atrial septum shunting. Aortic valve did show some thickening that was consistent with sclerosis with mild regurgitation. Bicuspid morphology could not be excluded. I did review the patient's labs at discharge in which her BMP was within normal limits, CBC was unremarkable and urinalysis was unremarkable. Per documentation, patient's hemoglobin A1c was 5.2, LDL 49 and a 30-day event recorder was ordered at discharge. I did review the patient's medical history to include previous stroke 04/27/2021, anxiety, aortic regurgitation, degenerative disc disease, GERD, glaucoma, cataracts, herniated disc, history of gastric bypass, hyperlipidemia, macular degeneration, depression, peripheral neuropathy, vitamin D deficiency, hypothyroid and urinary incontinence. On assessment I did note the patient to be alert and oriented x 3. VSS. Upon my entering the room she was reading her booklet about strokes and she asked me to assist her with filling out the information on her lipid panel. I was able to locate her LDL which was in the documentation sent from [facility] but I was unable to locate the rest of her lipid panel. I did find her lipid panel from 2020 which I did write on the bottom of her paper. I will attempt to locate her lipid profile from [facility]. She did state that she does get dizzy with standing. I did order orthostatic vital signs and encouraged her to drink more water. Her NIH on assessment was 6 which is what her discharge NIH was from [facility]. I did note her to have significant left-sided deficits with drift and ataxia. She also had sensory loss to the left side. No facial asymmetry. Patient states that she had some lumps on her head prior to arrival to [facility] of unknown etiology. She states that she did not fall. She also has bruising to the bridge of her nose. It appears to be in the pattern of her glasses. Patient does complain of being extremely tired. 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 She states that she typically goes to bed at 3 AM but that is not going to work here. We did discuss her lack of sleep and her ability to participate with therapies during the day. She states that she has tried everything to include melatonin 10 mg p.o. at night. And she does not feel that it assisted her with sleeping better. She was open to trying trazodone 50 mg p.o. at night to assist with sleep. Order has been placed. Patient does have history of glaucoma and cataracts. She does utilize drops to assist with management. She states no change in her vision compared to days prior to her stroke. Patient states that she lives with her in a basement apartment at her daughter's house. She does have a walkout where she enjoys spending time on her swing watching nature. All questions that patient had were answered. [facility] Medical History (Updated 10/14/25 @ 09:56 by Saida Montesinos NP-Ozzy) Sciatica GERD (gastroesophageal reflux disease) Hyperlipidemia Hypothyroid Home Medications ?Medication ?Instructions ?Recorded ?Last Taken ?Type biotin 1,000 mcg chewable tablet 1,000 mcg PO DAILY vitamin 04/26/21 Unknown History Held on 10/13/25. Instructions: Ordered calcium 600 mg (as 1 tab PO DAILY vitamin 04/26/21 Unknown History carbonate)-vitamin D3 10 mcg (400 unit) tablet (Calcium 600 + D(3)) cholecalciferol (vitamin D3) 25 25 mcg PO DAILY vitamin 04/26/21 Unknown History mcg (1,000 unit) tablet gabapentin 600 mg tablet 600 mg PO TID nerve pain 04/26/21 Unknown History levothyroxine 75 mcg capsule 75 mcg PO DAILY thyroid 04/26/21 Unknown History lovastatin 20 mg tablet 20 mg PO QHS cholesterol 04/26/21 Unknown History pantoprazole 40 mg tablet,delayed 40 mg PO QHS reflux 04/26/21 Unknown History release venlafaxine 75 mg capsule,extended 75 mg PO DAILY mental health 04/26/21 Unknown History release 24 hr aspirin 81 mg tablet,delayed 81 mg PO DAILY heart health #30 04/30/21 Unknown Rx release (Enteric Coated Aspirin) tabs brimonidine 0.2 % eye drops 1 drp LEFT EYE BID ophthalmic 10/13/25 Unknown History solution carboxymethylcellulose sodium 1 % 1 drp EACH EYE BID dry eye 10/13/25 Unknown History eye liquid gel drops (Refresh Liquigel) cyclobenzaprine 10 mg tablet 10 mg PO TID PRN muscle spasm 10/13/25 Unknown History ferrous sulfate 325 mg (65 mg 325 mg PO QODAY supplement 10/13/25 Unknown History iron) tablet (iron) multivitamin 1 tab PO DAILY supplement 10/13/25 Unknown History prednisolone acetate 1 % eye 1 drp LEFT EYE DAILY ophthalmic 10/13/25 Unknown History drops,suspension soultion timolol maleate 0.5 % eye drops 1 drp LEFT EYE BID eye drop 10/13/25 Unknown History venlafaxine 150 mg 150 mg PO DAILY mental health 10/13/25 Unknown History capsule,extended release 24 hr vitamin B complex (Complex B-100 1 tab PO DAILY supplement 10/13/25 Unknown History tablet,extended release) Allergy/AdvReac Type Severity Reaction Status Date / Time ketoprofen (From Orudis) Allergy Other Verified 04/26/21 12:01 latex AdvReac Other Verified 04/26/21 12:01 Family History unable to obtain Surgical History Bariatric surgery status Social History household members: spouse other: Has had COVID-19 vaccination series Smoking Status: Former smoker ROS Constitutional Constitutional: Reports difficulty sleeping and fatigue Eyes Eyes: Reports as per HPI and loss of vision ENT HEENT: Reports dizziness and other Details: Dizziness with standing Cardiovascular Cardiovascular: Reports edema Respiratory/Chest Respiratory/Chest: Reports systems reviewed and no addt'l complaints, except as documented Gastrointestinal Gastrointestinal: Reports constipation Genitourinary Genitourinary: Reports urinary incontinence Musculoskeletal Musculoskeletal: Reports joint pain and joint stiffness Integumentary Integumentary: Reports as per HPI Neurologic Neurologic: Reports dizziness, lack of coordination, paresthesias and sensory deficit Psychiatric Psychiatric: Reports abnormal sleep pattern and depression Endocrine Endocrinology: Reports as per HPI Hematologic/Lymphatic Hematologic/Lymphatic: Reports easy bleeding Allergic/Immunologic Allergic/Immunologic: Reports as per HPI Vital Signs Vital Signs Vital Signs: 10/13/25 18:25 10/13/25 18:53 10/13/25 21:00 Temperature 98.1 F Temperature Source Temporal Pulse Rate 80 80 Respiratory Rate 17 17 Respiratory Effort Normal Non-Labored Normal Non-Labored Respiratory Depth Normal Normal Respiratory Pattern Normal Normal Blood Pressure 99/49 L Blood Pressure Mean 65 Blood Pressure Source Monitor Blood Pressure Position Semi-Fowlers Blood Pressure Location Left Arm Pulse Ox 97 97 Oxygen Delivery Method Room Air Room Air Room Air 10/14/25 06:00 Temperature 98.0 F Temperature Source Temporal Pulse Rate 66 Respiratory Rate 15 Respiratory Effort Respiratory Depth Respiratory Pattern Blood Pressure 105/63 Blood Pressure Mean 77 Blood Pressure Source Monitor Blood Pressure Position Supine Blood Pressure Location Right Forearm Pulse Ox 96 Oxygen Delivery Method Room Air Weight Weight: 189 lb 9.561 oz Body Mass Index (BMI) 34.7 Indicators for Scoring Admitted with or Primary Diagnosis of CVA/Stroke: Yes Hx of CVA/Stroke: Yes Modified Clinton Score MRS Score at time of Evaluation: 4-Moderate/severe disability NIHSS NIHSS 1a. Level of Consciousness: 0 - Alert; keenly responsive 1b. LOC Questions: 0 - Answers BOTH questions correctly 1c. LOC Commands: 0 - Performs BOTH tasks correctly 3. Visual: 0 - No visual loss (pt does have glaucoma and has visual issues at baseline ) 4. Facial Palsy: 0 - Normal symmetrical movements 5a. Left Arm: 2 - Some effort against gravity; 5b. Right Arm: 0 - No drift; arm holds 90 (or 45) degrees for full 10 seconds 6a. Left Le - Some effort against gravity; 6b. Right Le - No drift; leg holds 30-degree position for full 5 seconds 7. Limb Ataxia: 1 - Present in 1 limb 8. Sensory: 1 - [id number]-ei-yrofddoz sensory loss; (less on the L ) 9. Best Language: 0 - No aphasia; normal 10. Dysarthria: 0 - Normal 11. Extinction and Inattention: 0 - No abnormality Total: 6 Physical Exam Const alert, oriented x3 and no apparent distress General Appearance: cooperative and comfortable Orientation / Consciousness: awake, oriented to person, oriented to place and oriented to time Exam Limitations: no limitations HEENT normocephalic HEENT Narrative: Bruising noted to the bridge of the nose Nose: other Other Details: Bruising to the bridge of the nose with unknown etiology. Patient denies fall Teeth and Gingiva: abnormal tooth and associated gingiva and other Other Details: Missing teeth Eyes Eyes Narrative: Left pupil is 4 right pupil is 3mm Neck Thyroid: thyroid normal Lymph Lymphatic: no lymphadenopathy noted Resp normal respiratory effort, normal air movement, no retractions, no use of accessory muscles and clear to auscultation bilaterally Effort and Inspection: able to speak in complete sentences Cardio regular rate, regular rhythm, S1 normal heart sound and S2 normal heart sound GI normal to inspection, nondistended, normoactive bowel sounds no CVA tenderness Back/Spine Back/Spine Narrative: Patient does have chronic back pain. Extremity normal capillary refill Extremity Narrative: Left upper extremity left lower extremity weakness Skin Skin Narrative: Bruise to the bridge of the nose. Right eye periorbital yellowing related to previous bruising of unknown etiology. Lesions: no lesions Rashes: no rashes Neuro oriented x3 Neuro Narrative: With drift and ataxia left upper and left lower extremity weakness. Sensorium / Orientation: awake, alert, oriented to person, oriented to place and oriented to time Speech: speech normal Motor Exam: strength abnormal, muscle tone abnormal and movement abnormality noted Psych mental status grossly normal Appearance: appropriate Attitude: calm and engaged Speech: normal speech Results Lab / Micro Data Attestation: I reviewed the patient's lab results. Lab results narrative: I did note that patient's BUN is slightly elevated at 24. This is most likely due to decreased oral hydration. Encouragement of oral intake. 10/14/25 05:50 10/14/25 05:40 Labs: Laboratory Results - last 24 hr 10/14/25 05:40: Sodium 141, Potassium 4.0, Chloride 105, Carbon Dioxide 28.0, Anion Gap 8, BUN 24 H, Creatinine 0.85, Estim Creat Clear Calc 61.77, Est GFR (MDRD) Non-Af 74, BUN/Creatinine Ratio 28.8 H, Glucose 97, Calcium 9.1, Phosphorus 4.2, Magnesium 2.2, Total Bilirubin 0.59, AST 36 H, ALT 36 H, Alkaline Phosphatase 59, Total Protein 5.7 L, Albumin 3.5, Globulin 2.2, Albumin/Globulin Ratio 1.6 10/14/25 05:50: WBC 4.7, RBC 4.01 L, Hgb 12.7, Hct 38.2, MCV 95.3, MCH 31.7, MCHC 33.2, RDW Std Deviation 46.4 H, RDW Coeff of Tamika 13.2, Plt Count 156, MPV 10.4, Immature Gran % (Auto) 0.200, Neut % (Auto) 49.6, Lymph % (Auto) 38.8, Piatt % (Auto) 11.0 H, Eos % (Auto) 0.0, Baso % (Auto) 0.4, Absolute Neuts (auto) 2.4, Absolute Lymphs (auto) 1.84, Nucleated RBC % 0 Assessment & Plan Assessment/Plan (1) Acute ischemic stroke: (2) Physical debility: (3) Insomnia: QUALIFIERS: Insomnia type: other insomnia Qualified Code(s): G47.09 - Other insomnia (4) Hypothyroid: QUALIFIERS: Hypothyroidism type: unspecified Qualified Code(s): E03.9 - Hypothyroidism, unspecified (5) Neuropathy: (6) Glaucoma (increased eye pressure): QUALIFIERS: Glaucoma type: open-angle Open angle glaucoma type: primary Laterality: bilateral Glaucoma stage: moderate stage Qualified Code(s): H40.1132 - Primary open-angle glaucoma, bilateral, moderate stage (7) Depression: QUALIFIERS: Depression Type: persistent depressive disorder Qualified Code(s): F34.1 - Dysthymic disorder (8) GERD (gastroesophageal reflux disease): QUALIFIERS: Esophagitis presence: esophagitis presence not specified Qualified Code(s): K21.9 - Gastro-esophageal reflux disease without esophagitis PLAN: Plan *Continue therapies PT/OT/ST *Fall precautions *Vital signs per protocol per shift *Bladder protocol *CBC/CMP every 3 days *Bowel protocol *VTE prophylaxis Lovenox 40 mg subcu daily *Encourage fluid intake *Aspirin 81 mg p.o. daily *Brimonidine tartrate 2% 1 drop left eye twice daily *Gabapentin 600 mg p.o. 3 times daily *Levothyroxine 75 mcg p.o. daily *Atorvastatin 5 mg p.o. nightly *Protonix 40 mg p.o. nightly *Prednisone acetate 1 drop left eye daily *Timolol maleate 1 drop left eye twice daily *Effexor 150 mg p.o. daily *Dorzolamide hydrochloride 1 drop left eye twice daily *Trazodone 50 mg p.o. nightly for sleep *Acetaminophen 650 mg p.o. 3 times daily *Orthostatic vital signs *Heart healthy diet Charges/Coding Visit Charges Inpatient E&M: 96964 Init Hosp L2
--- NOTE | 2025-10-14 10:15 | PCM.RU.PYE ---
Admission Information Primary Diagnosis:: debility following stroke Status Changes from Prescreening?: No changes Identified Actual Problem List:: Falls, Pain, ALteration in Cmfrt, Depression, Bladder Incontinence, Alteration in Sleep, Mobility Impaired, Know.Dfct/Disease Process, Fluid Change-Dehydration and Alteration-Leisure Activ. Potential Problem List:: DVT, Bleeding, Infection, UTI, Aspiration, Falls, Skin Integrity and Depression Risk of Complications DVT: DOMINIK Hose and - (lovenox ) Bleeding: Monitor Lab Values, Nursing to Teach Precautions for anti-coagulation therapy., Wound, if applicable, to be assessed every shift. and Stroke patients assessed for lethargy or change in status. Infection: Clinical Staff to Monitor for S/S of infection: and S/S of infection include fever, redness, warmth, etc. Urinary Tract Infection: Monitor for frequency, burning, discomfort, or incontinence. and Nursing will obtain urine sample for urinalysis and C&S when ordered. Aspiration: Clinical staff will monitor for coughing, drooling, congestion., Speech will evaluate swallowing and dsyphasia. and Nursing will monitor patient swallowing during meals. Falls: Patient will be evaluated for Fall Precautions and Patient will be placed on Fall Precautions as indicated per protocol. Skin Breakdown: Nursing will assess skin daily using assessment tool. and Nursing will place on Skin Breakdown Precautions as indicated. Pain: Clinical staff will assess patient's pain level per protocol., Medications will be given, if needed, and the pain level reassessed. and Other methods: Massage, distraction, decrease stimulus, etc. used PRN. Plan of Care Patient requires physician specializing in physical medicine and rehab oversight to provide close medical supervision of rehab issues including: Pain Management, Sleep Problems, DVT prophylaxis, Rehabilitation Leadership and Coordination of treatment team Patient needs Physical Therapy: For a minimum of 1 hour and At least 5 out of 7 days Patient needs Physical Therapy to improve:: Mobility, Strengthening, Transfers, Stretching, ROM, Endurance, Stairs, Gait and Balance Patient needs Occupational Therapy: For a minimum of 1 hour and At least 5 out of 7 days Patient needs Occupational Therapy to improve ADL's incl.: Eating, Grooming, Bathing, Dressing, Toileting, Toilet transfers, Community Reintegration, Higher functioning activities, Household tasks, Adaptive Equipment, Splinting and Other activities as determined Patient requires speech therapy: For a minimum of 1 hour and At least 5 out of 7 days Patient requires speech therapy for: Swallowing, Cognition, Language Skills and Compensatory Strategies Patient requires 24/7 Rehabilitation Nursing for: Pain Issues, Identifying and preventing risk factors, Monitoring and reporting current medical conditions, Assisting with ambulation, transfer, and all ADL's, Teaching patients about disease process and medications, Family teaching, Providing safe environment, Bowel and Bladder Issues, Skin integrity and Medication Management Patient needs Insole Department Worker/ Case Management for: Discharge Planning, Arranging Home Equipment or Services and Family Interventions Patient needs Dietary and Nutrition Services for: Adequate Nutrition, Nutritional Supplements and Nutritional Education Goals Goals Patient will remain: free from falls and or injury at time of discharge. Patient will perform eating at: Standby Assist. Patient will perform bed mobility at: MOD I level of assist. Patient will complete transfers from bed to chair at: MOD I level of assist. Patient will ambulate: 100 feet and with LRD Patient will complete upper body dressing at: MOD I level of assist. Patient will complete lower body dressing at: MOD I level of assist. Patient will complete toilet transfer at: Standby Assist. Patient will complete toileting at: MOD I level of assist. Patient will perform bathing at: MOD I level of assist. Patient will perform Tub/Shower transfer at: Standby Assist. Patient will complete grooming at: MOD I level of assist. Patient will complete home management skills at: MOD I level of assist. Patient will achieve: at MOD I assist and - (1 curb step) Patient will have pain level of: of 3 or less Patient's skin will: remain intact Patient will receive: adequate nutrition. Discharge Planning Pt Prognosis for Sig. Practical Improv. w/in Reasonable Time: Fair Estimated Length of stay (days): 14 Anticipated D/C Destination: Home Was Preadmission Assessment Accurate?: Yes
[2025-10-14 14:02] VITALS: BMI 34.7
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
[2025-10-14 16:59] VITALS: BP 90/51; PULSE 72; RESP 16; TEMP 36.6; O2SAT 98
[2025-10-14 19:45] VITALS: PULSE 72; RESP 16; O2SAT 98; BMI 34.7
[2025-10-14] MEDS: Dorzolamide 2% 10ml Bottle 1 DRP LEFT EYE (20:59)
[2025-10-15 06:00] VITALS: BP 81/48; BP 82/44; BP 93/54; PULSE 62; PULSE 68; PULSE 70; RESP 16; TEMP 37.1; O2SAT 97
[2025-10-15] MEDS: Timolol 0.5% 5ML OPTH.BTL 1 DRP LEFT EYE ×2 (06:30→20:18)
[2025-10-15] MEDS: BRIMONIDINE 0.2% 5ML BOTTLE 1 DRP LEFT EYE ×2 (06:31→20:19)
[2025-10-15] MEDS: Dorzolamide 2% 10ml Bottle 1 DRP LEFT EYE ×2 (06:32→20:18)
[2025-10-15] MEDS: prednisoLONE eye drops (5 mL) 1 DROP OPTH.BTL 1 DRP LEFT EYE (06:36)
[2025-10-15] MEDS: Aspirin E.C. 81 MG Tablet PO (08:41)
[2025-10-15] MEDS: Senna/Docusate Sodium 1 Tablet 2 TABLET PO ×2 (08:41→20:19)
[2025-10-15] MEDS: Calcium Carb/Vitamin D 1 TABLET Tablet PO (08:41)
[2025-10-15] MEDS: Vitamin B Comp W-C Capsule 1 CAP PO (08:42)
[2025-10-15] MEDS: Cholecalciferol (VIT D3) 25 MCG TABLET (1,000 UNITS) PO (08:44)
[2025-10-15 08:49] VITALS: BMI 34.7
[2025-10-15 10:45] VITALS: O2SAT 98
[2025-10-15 18:00] VITALS: BP 109/55; PULSE 81; RESP 16; TEMP 37.1; O2SAT 96
[2025-10-16 06:00] VITALS: BP 92/49; PULSE 70; RESP 17; TEMP 37.3; O2SAT 94
[2025-10-16] MEDS: BRIMONIDINE 0.2% 5ML BOTTLE 1 DRP LEFT EYE ×2 (06:21→22:24)
[2025-10-16] MEDS: Dorzolamide 2% 10ml Bottle 1 DRP LEFT EYE ×2 (06:21→22:24)
[2025-10-16] MEDS: prednisoLONE eye drops (5 mL) 1 DROP OPTH.BTL 1 DRP LEFT EYE (06:22)
[2025-10-16] MEDS: Timolol 0.5% 5ML OPTH.BTL 1 DRP LEFT EYE ×2 (06:22→22:24)
[2025-10-16 07:03] VITALS: O2SAT 94
[2025-10-16] MEDS: Cholecalciferol (VIT D3) 25 MCG TABLET (1,000 UNITS) PO (07:58)
[2025-10-16] MEDS: Vitamin B Comp W-C Capsule 1 CAP PO (07:58)
[2025-10-16] MEDS: Aspirin E.C. 81 MG Tablet PO (07:58)
[2025-10-16] MEDS: Calcium Carb/Vitamin D 1 TABLET Tablet PO (07:58)
[2025-10-16] MEDS: Senna/Docusate Sodium 1 Tablet 2 TABLET PO ×2 (07:58→22:27)
[2025-10-16 17:51] VITALS: BP 99/60; PULSE 75; RESP 18; TEMP 37.1; O2SAT 95
[2025-10-16 22:00] VITALS: PULSE 62
[2025-10-16 22:15] VITALS: BP 103/55; PULSE 62; RESP 16; TEMP 36.9; O2SAT 98
[2025-10-17 03:13] VITALS: BMI 34.7
[2025-10-17 06:00] VITALS: BP 102/59; PULSE 63; RESP 16; TEMP 36.5; O2SAT 63
[2025-10-17] MEDS: Dorzolamide 2% 10ml Bottle 1 DRP LEFT EYE ×2 (06:58→22:20)
[2025-10-17] MEDS: Timolol 0.5% 5ML OPTH.BTL 1 DRP LEFT EYE ×2 (06:58→22:20)
[2025-10-17] MEDS: prednisoLONE eye drops (5 mL) 1 DROP OPTH.BTL 1 DRP LEFT EYE (06:59)
[2025-10-17] MEDS: BRIMONIDINE 0.2% 5ML BOTTLE 1 DRP LEFT EYE ×2 (06:59→22:18)
--- NOTE | 2025-10-17 07:21 | PCM.PROGNOTE ---
Subjective Subjective Fina was seen on team rounds today. Her daughter Jelly was present in the room. All questions were answered to their satisfaction. Afebrile VSS -some of the blood pressures have been on the low side. Heart rate is within normal limits and is ranged from 62-81 over the weekend. Not on any antihypertensives. Maintaining appropriate oxygen saturation on RA Oral intake - FOOD good FLUIDS good Discussed with nursing - no problems that need addressed Reviewed the THERAPY notes Medication list reviewed. Denies lightheadedness, cephalgia, difficulty swallowing, chest pain, shortness of breath, cough, nausea/vomiting/abdominal pain, dysuria and calf pain. She says the trazodone helps her fall asleep but it is short-lived. She does not feel hung over in the morning. No adverse reactions to trazodone. She is agreeable to increasing the dose to 100 mg nightly. She scored a 48 out of a possible 50 on the BCAT indicating no significant cognitive dysfunction. Review of the EMR shows that she had left-sided weakness with trouble speaking in 2020 and received TNK in the emergency room. MRI was negative for acute stroke but patient had persistent weakness in the left leg. MRI of the cervical, thoracic and lumbar spine was done which she had mild canal stenosis in the cervical area and some mild canal stenosis at L5-S1. Fina tells me she had gastric bypass surgery in 2015 and she lost 200 pounds and was down to 170. Current weight is 189 and she is stable at this. Prior to her weight loss she was on CPAP for obstructive sleep apnea. When she lost weight she discontinued the CPAP.......... this was her own doing. She tells me she falls 3 or 4 times a month so she always has bruises. She denies any fractures. Most of the time she does not use a cane or a walker but admits to having disequilibrium and she attributes this to the first stroke in 2020. She had a 30-day event monitor at discharge from the hospital in 2020 for the stroke and it showed no atrial fibrillation but she had sinus tachycardia and sinus bradycardia. She admits to feeling lightheaded when she stands up. She tells me she takes levothyroxine 6 days a week and does not take any on Sundays. She takes it with coffee. She was taking rosuvastatin 20 mg daily at presentation for the stroke but somehow was transition to Lipitor 5 mg daily? LDL was 49 on 20 mg of Crestor daily. She takes both sertraline 50 mg daily and Effexor 225 mg daily. Past surgical history includes gastric bypass surgery in November 2015 cholecystectomy in 1988, tubal ligation in 1981, appendectomy in 1962, T&A in 1955, total knee replacement Cataract extraction. CTA of the head and neck at the previous hospital showed no large vessel occlusion and no significant stenoses or AVMs. MRI post TNK was negative. Transthoracic echocardiogram at [facility] showed an ejection fraction of 55 to 60% with no wall motion abnormalities. There was aortic sclerosis but no aortic stenosis. There was mild aortic regurgitation. The mitral annulus was severely calcified and the leaflets were mildly thickened with mild regurgitation. The right ventricular systolic pressure was estimated at 27. There was no [id number] shunt. Both atria were of normal size. Objective Data Objective Data Vital Signs: Vital Signs Temp Pulse Resp BP Pulse Ox O2 Del Method 98.4 F 62 16 103/55 L 98 Room Air 10/16/25 22:15 10/16/25 22:15 10/16/25 22:15 10/16/25 22:15 10/16/25 22:15 10/16/25 22:15 Oxygen Delivery Method Room Air Weight: 189 lb 9.561 oz Body Mass Index (BMI) 34.7 Intake & Output: Intake and Output for Last 24 Hours 10/15/25 10/16/25 10/17/25 23:59 23:59 23:59 Intake Total 2720 / 2720 1800 / 1800 300 / 300 Output Total 1750 / 2350 1300 / 1500 500 / 500 Balance 970 / 370 500 / 300 -200 / -200 Lab / Micro Data 10/14/25 05:50 10/14/25 05:40 Physical Exam Const alert, oriented x3 and no apparent distress General Appearance: cooperative Orientation / Consciousness: Negative for confused HEENT moist oral mucous membranes HEENT Narrative: She is edentulous with a marked underbite. Neck supple General: trachea midline Resp normal respiratory effort and clear to auscultation bilaterally Cardio regular rate, regular rhythm, S1 normal heart sound, S2 normal heart sound, no murmurs, no rub and no gallops Cardio Narrative: No ectopy GI normal to inspection, nondistended, normoactive bowel sounds and soft to palpation GI Narrative: No guarding Extremity no calf tenderness General Extremity: edema Skin Skin Narrative: She has some bruising on her forearms and also bruising over the bridge of her nose. She had lumps on her head recently which have resolved. Admits to frequent falls and states she has had 3-4 falls in the past month. She tells me she always has bruises but she denies any fractures. General Skin Exam: no breakdown Neuro CN's II-XII intact bilaterally Neuro Narrative: She was able to hold the left arm up at 90 degrees today for a count of 10 with no drift. She was able to do the finger-nose test slowly but with no dysmetria or ataxia. She held her left leg up for a count of 5 but had drift. Still with some decrease sensation on the left. No aphasia, no dysarthria. Assessment & Plan Assessment/Plan (1) History of thrombolytic therapy: (2) Acute ischemic stroke: (3) Physical debility: (4) Acute left hemiparesis: (5) Hypothyroid: QUALIFIERS: Hypothyroidism type: unspecified Qualified Code(s): E03.9 - Hypothyroidism, unspecified (6) Hyperlipidemia: (7) Neuropathy: (8) Glaucoma (increased eye pressure): QUALIFIERS: Glaucoma stage: moderate stage Glaucoma type: open-angle Laterality: bilateral Open angle glaucoma type: primary Qualified Code(s): H40.1132 - Primary open-angle glaucoma, bilateral, moderate stage (9) Depression: QUALIFIERS: Depression Type: persistent depressive disorder Qualified Code(s): F34.1 - Dysthymic disorder (10) GERD (gastroesophageal reflux disease): QUALIFIERS: Esophagitis presence: esophagitis presence not specified Qualified Code(s): K21.9 - Gastro-esophageal reflux disease without esophagitis (11) Frequent falls: PLAN: Plan 1. Continue therapy 2. Decrease gabapentin to 400 mg 3 times daily 3. Increase trazodone to 100 mg at at bedtime 4. She does not want to be on a heart healthy diet and would like to be placed on a regular diet. 5. TSH, T4 and a.m. cortisol tomorrow 6. Will need neurology at discharge. Prefers to follow-up in [place] since she lives here. She is agreeable to following up with Dr. Casiano. 7. If the TSH, T4 and cortisol are all within normal limits would consider a tilt table test postdischarge from rehab. 8. 30-day event monitor at discharge. Jelly tells me that her son and daughter have both had multiple syncopal episodes and her son was seen at [facility] and was diagnosed with Pots disease. I am perplexed about the expressive aphasia which is a left cerebral problem with the left side hemiparesis? This implies events on both sides of the brain yet the MRI was negative. She had the exact same complaints when she presented to the emergency room at [facility] in April 2021. She received tPA at that occasion as well. MRI at that admission was also negative. Could she have Pots? Has had 2 strokes with Left side weakness and aphasia? She had thrombolytics with both events........no residual deficit after the first event and sx are resolving quickly now. Denies WALDRON/hx of migraines. No hx of seizures. It would be very unusual to have 2 strokes 4 years apart with the exact same symptoms. Especially since she has symptoms involving both sides of the cerebrum. Postural tachycardia syndrome with decreased cerebral perfusion? I reviewed the social workers note about the suicidal ideation. She is agreeable to following up with psychiatry and counseling. Charges/Coding Visit Charges Inpatient E&M: 74347 Subs Hosp L2
[2025-10-17] MEDS: Aspirin E.C. 81 MG Tablet PO (07:56)
[2025-10-17] MEDS: Calcium Carb/Vitamin D 1 TABLET Tablet PO (07:56)
[2025-10-17] MEDS: Vitamin B Comp W-C Capsule 1 CAP PO (07:56)
[2025-10-17] MEDS: Cholecalciferol (VIT D3) 25 MCG TABLET (1,000 UNITS) PO (07:56)
[2025-10-17] MEDS: Senna/Docusate Sodium 1 Tablet 2 TABLET PO (07:56)
[2025-10-17 10:13] VITALS: BP 101/65; BP 92/55; BP 98/62; PULSE 64; PULSE 76
[2025-10-17 13:03] VITALS: BMI 34.7
--- NOTE | 2025-10-17 13:20 | CASEMGMT ---
Social Work IDT met with patient and dtr for Team meeting. Discussed patient's progress in PT/OT/SN/MD/DIRECTOR OF NATIONAL SALES. Educated to [facility] insurance with NRD 10/25 and continued stay is not guaranteed with each review. Pt's goal is to return home with dtr/family. Pt will essentially be home alone as dtr works 10 hr days, but is off on Mondays. has Alzheimer's and grandson is in school half-days. SW will revisit progress after the week and assist with DC planning. SW provided Stroke Support Group brochure and education. SW provided medical alert and counseling resources. SW will continue to follow for DC planning. Marcia Valerio MSW FRET SAW OPERATOR
[2025-10-17 18:00] VITALS: BP 99/55; PULSE 81; RESP 18; TEMP 36.9; O2SAT 99
[2025-10-17 20:54] VITALS: PULSE 78; O2SAT 95
[2025-10-17 22:00] VITALS: PULSE 81; RESP 16; O2SAT 97
[2025-10-18 04:33] VITALS: BMI 34.7
[2025-10-18 06:00] VITALS: BP 93/61; PULSE 72; RESP 16; TEMP 36.6; O2SAT 97
[2025-10-18] MEDS: prednisoLONE eye drops (5 mL) 1 DROP OPTH.BTL 1 DRP LEFT EYE (06:07)
[2025-10-18] MEDS: BRIMONIDINE 0.2% 5ML BOTTLE 1 DRP LEFT EYE ×2 (06:07→20:44)
[2025-10-18] MEDS: Dorzolamide 2% 10ml Bottle 1 DRP LEFT EYE ×2 (06:08→20:49)
[2025-10-18] MEDS: Timolol 0.5% 5ML OPTH.BTL 1 DRP LEFT EYE ×2 (06:08→20:48)
[2025-10-18 06:12] LABS: CORTISOL AM 5.66 ug/dL (6.02-18.40)
[2025-10-18] MEDS: Cholecalciferol (VIT D3) 25 MCG TABLET (1,000 UNITS) PO (08:08)
[2025-10-18] MEDS: Senna/Docusate Sodium 1 Tablet 2 TABLET PO ×2 (08:08→21:08)
[2025-10-18] MEDS: Calcium Carb/Vitamin D 1 TABLET Tablet PO (08:09)
[2025-10-18] MEDS: Aspirin E.C. 81 MG Tablet PO (08:09)
[2025-10-18] MEDS: Vitamin B Comp W-C Capsule 1 CAP PO (08:09)
--- NOTE | 2025-10-18 10:47 | PN_ITS ---
Subjective Subjective Afebrile VSS -blood pressure over the past 24 hours has ranged from 92/49 to 101/65. Pulse is ranged from 63-81. Orthostatic vital signs were negative for orthostatic hypotension. Maintaining appropriate oxygen saturation on RA Oral intake - FOOD good FLUIDS good Discussed with nursing - no problems that need addressed. Slept well last night with 100 mg of trazodone per nursing. Reviewed the THERAPY notes Medication list reviewed. AM cortisol is low at 5.66. The TSH is 0.86 and the T4 is 0.8. Fina tells me she is feeling very well today. She slept well last night and has a good appetite. She denies cephalgia, lightheadedness, vertigo, chest pain, shortness of breath, dysuria and calf pain. Objective Data Objective Data Vital Signs: Vital Signs Temp Pulse Resp BP Pulse Ox O2 Del Method O2 Flow Rate 97.9 F 72 16 93/61 97 Room Air 0 10/18/25 06:00 10/18/25 06:00 10/18/25 06:00 10/18/25 06:00 10/18/25 06:00 10/18/25 06:00 10/17/25 20:54 FiO2 21 10/17/25 20:54 Oxygen Flow Rate (L/min) 0 Oxygen Delivery Method Room Air Weight: 189 lb 9.561 oz Body Mass Index (BMI) 34.7 Intake & Output: Intake and Output for Last 24 Hours 10/16/25 10/17/25 10/18/25 23:59 23:59 23:59 Intake Total 1800 / 1800 1820 / 1820 560 / 560 Output Total 1300 / 1500 1350 / 1350 800 / 800 Balance 500 / 300 470 / 470 -240 / -240 Lab / Micro Data 10/14/25 05:50 10/14/25 05:40 Labs: Laboratory Results - last 24 hr 10/18/25 05:28: TSH 0.856, Free T4 0.80, Cortisol AM Sample 5.66 L Physical Exam Const alert and no apparent distress General Appearance: cooperative HEENT moist oral mucous membranes Resp normal respiratory effort and clear to auscultation bilaterally Cardio regular rate, regular rhythm, no murmurs, no rub and no gallops Cardio Narrative: No ectopy GI normal to inspection, nondistended, normoactive bowel sounds and soft to palpation GI Narrative: No guarding Extremity no calf tenderness General Extremity: edema Neuro Neuro Narrative: She was able to hold the left arm up at 90 degrees today for a count of 10 with no drift. She was able to do the finger-nose test slowly but with no dysmetria or ataxia. She held her left leg up for a count of 5 but had drift. Still with some decrease sensation on the left. No aphasia, no dysarthria. Assessment & Plan Assessment/Plan (1) History of thrombolytic therapy: (2) Acute ischemic stroke: (3) Physical debility: (4) Acute left hemiparesis: (5) Hypothyroid: QUALIFIERS: Hypothyroidism type: unspecified Qualified Code(s): E 03.9 - Hypothyroidism, unspecified (6) Hyperlipidemia: (7) Neuropathy: (8) Glaucoma (increased eye pressure): QUALIFIERS: Glaucoma type: open-angle Open angle glaucoma type: p rimary Laterality: bilateral Glaucoma stage: moderate stage Qualified Code(s): H40.1132 - Primary open-angle glaucoma, bilateral, moderate stage (9) Depression: QUALIFIERS: Depression Type: persistent depressive disorder Q ualified Code(s): F34.1 - Dysthymic disorder (10) GERD (gastroesophageal reflux disease): QUALIFIERS: Esophagitis presence: esophagitis presence not specified Qualified Code(s): K21.9 - Gastro-esophageal reflux disease without esophagitis (11) Frequent falls: PLAN: Plan 1. Continue therapy 2. Cortrosyn stimulation test in the a.m. 3. FSH/LH in a.m. 4. May need referral to endocrinology postdischarge from rehab. I suspect that she either has POTS disease or adrenal insufficiency......... possible pituitary or hypothalamic dysfunction. 5. Continue trazodone 100 mg at bedtime. 6. Psychiatry referral and counseling postdischarge from rehab Charges/Coding Visit Charges Inpatient E&M: 56464 Subs Hosp L1
[2025-10-18 11:34] LABS: Vitamin D,25 Hydroxy 52.9 ng/mL (30-100)
[2025-10-18 12:11] LABS: Free T3 1.8 pg/mL (2.18-3.98)
--- NOTE | 2025-10-18 15:03 | CHAPLAIN ---
Type of Pastoral Visit ___ Initial Visit ___ Follow-up Visit ___ On-call Visit ___ General Patient Visit ___ Spiritual Assessment ___ Family Conference ___ Bereavement ___ Rapid Response ___ Code Blue ___ Other (describe below) Pastoral Care Referral From ___ Patient ___ Family ___ Nurse ___ Physician ___ Telecommunications Field Technician ___ Experimental Rocket Sled Mechanic ___ Other (describe below) Sacrament/Intervention ___ Active listening ___ Anointing ___ Buddhism ___ Bereavement ___ Communion ___ Jazmín exploration ___ ___ Life review ___ Prayer ___ Reconciliation ___ Sacrament of Sick ___ Supportive presence ___ Wedding ___ Other (describe below) Pastoral Comments patient was having therapy at time of attempted visit
[2025-10-18 16:25] VITALS: BMI 34.7
[2025-10-18 18:00] VITALS: BP 135/78; PULSE 72; RESP 17; TEMP 36.3; O2SAT 95
[2025-10-19 04:25] VITALS: BMI 34.7
[2025-10-19] MEDS: Cosyntropin 0.25 MG in 0.9% Normal Saline (Pres. free 4 ML 150 MG IV (05:20)
[2025-10-19] MEDS: 0.9% Saline Lock 10 ML Syringe IV (05:22)
[2025-10-19] MEDS: BRIMONIDINE 0.2% 5ML BOTTLE 1 DRP LEFT EYE ×2 (05:28→21:14)
[2025-10-19] MEDS: prednisoLONE eye drops (5 mL) 1 DROP OPTH.BTL 1 DRP LEFT EYE (05:28)
[2025-10-19] MEDS: Timolol 0.5% 5ML OPTH.BTL 1 DRP LEFT EYE ×2 (05:29→21:13)
[2025-10-19] MEDS: Dorzolamide 2% 10ml Bottle 1 DRP LEFT EYE ×2 (05:29→21:13)
[2025-10-19 06:00] VITALS: BP 105/58; PULSE 61; RESP 16; TEMP 36.3; O2SAT 98; BMI 35.4
[2025-10-19 06:34] LABS: CORTISOL AM 5.84 ug/dL (6.02-18.40); Follicle Stimulating Hormone 60.9 mIU/mL
[2025-10-19 07:08] LABS: CORTISOL AM 21.10 ug/dL (6.02-18.40)
--- NOTE | 2025-10-19 08:10 | PN_ITS ---
Documented by User: SRINIVAS Pratt 10/19/25 08:20 Subjective Subjective Afebrile VSS -blood pressure over this morning is 105/58 and improved from last assessment. . Pulse is 61. Maintaining appropriate oxygen saturation on RA at 98%. Oral intake - FOOD good FLUIDS good. Urine output is good and -70 in the last 24 hours. Discussed with nursing - no problems that need addressed. Slept well last night. Reviewed the THERAPY notes Medication list reviewed. Fina is very talkative and in good spirits. She is progressing well with therapies. She slept well last night and has a good appetite. She denies cephalgia, lightheadedness, vertigo, chest pain, shortness of breath, dysuria and calf pain. *12 point Review of systems is negative except as documented in Subjective data. *This note was generated with [employer] software. It may contain incorrect words, spelling, and punctuation that were not noted in checking the note before signing. Objective Data Objective Data Vital Signs: Vital Signs Temp Pulse Resp BP Pulse Ox O2 Del Method O2 Flow Rate 97.3 F L 61 16 105/58 L 98 Room Air 0 10/19/25 06:00 10/19/25 06:00 10/19/25 06:00 10/19/25 06:00 10/19/25 06:00 10/19/25 06:00 10/17/25 20:54 FiO2 21 10/17/25 20:54 Oxygen Flow Rate (L/min) 0 Oxygen Delivery Method Room Air Weight: 192 lb 14.472 oz Body Mass Index (BMI) 35.4 Intake & Output: Intake and Output for Last 24 Hours 10/17/25 10/18/25 10/19/25 23:59 23:59 23:59 Intake Total 1820 / 1820 2500 / 2500 730 / 730 Output Total 1350 / 1350 1974 / 1974 800 / 800 Balance 470 / 470 525 / 525 -70 / -70 Lab / Micro Data Attestation: I reviewed the patient's lab results. Lab results narrative: from 10/14/25 10/14/25 05:50 10/14/25 05:40 Labs: Laboratory Results - last 24 hr 10/18/25 05:28: Vitamin D 25-Hydroxy 52.9, Free T3 pg/dL 1.8 L 10/19/25 05:18: FSH 60.9, Luteinizing Hormone 32.5, Cortisol AM Sample 5.84 L 10/19/25 06:12: Cortisol AM Sample 21.10 H Rhythm Strip Rate: 61 Physical Exam Const alert, oriented x3 and no apparent distress General Appearance: cooperative and comfortable Orientation / Consciousness: awake, oriented to person, oriented to place and oriented to time Exam Limitations: no limitations HEENT normocephalic Eyes Eyes Narrative: Left pupil is 4 right pupil is 3mm Neck Thyroid: thyroid normal Lymph Lymphatic: no lymphadenopathy noted Resp normal respiratory effort, normal air movement, no retractions, no use of accessory muscles and clear to auscultation bilaterally Effort and Inspection: able to speak in complete sentences Cardio regular rate, regular rhythm, S1 normal heart sound and S2 normal heart sound GI normal to inspection, nondistended, normoactive bowel sounds no CVA tenderness Back/Spine Back/Spine Narrative: Patient does have chronic back pain. Extremity normal capillary refill Extremity Narrative: Left upper extremity left lower extremity weakness Skin Skin Narrative: Bruise to the bridge of the nose with some yellowing. Right eye periorbital yellowing related to previous bruising of unknown etiology. Lesions: no lesions Rashes: no rashes Neuro oriented x3 Neuro Narrative: With drift and ataxia left upper and left lower extremity weakness. Sensorium / Orientation: awake, alert, oriented to person, oriented to place and oriented to time Speech: speech normal Motor Exam: strength abnormal, muscle tone abnormal and movement abnormality noted Psych mental status grossly normal Appearance: appropriate Attitude: calm and engaged Speech: normal speech Assessment & Plan Assessment/Plan (1) Acute ischemic stroke: (2) Physical debility: (3) Insomnia: QUALIFIERS: Insomnia type: other insomnia Qualified Code(s): G 47.09 - Other insomnia (4) Hypothyroid: QUALIFIERS: Hypothyroidism type: unspecified Qualified Code(s): E 03.9 - Hypothyroidism, unspecified (5) Neuropathy: (6) Glaucoma (increased eye pressure): QUALIFIERS: Glaucoma stage: moderate stage Glaucoma type: open- angle Laterality: bilateral Open angle glaucoma type: primary Qualified Code(s): H40.1132 - Primary open-angle glaucoma, bilateral, moderate stage (7) Depression: QUALIFIERS: Depression Type: persistent depressive disorder Q ualified Code(s): F34.1 - Dysthymic disorder (8) GERD (gastroesophageal reflux disease): QUALIFIERS: Esophagitis presence: esophagitis presence not specified Qualified Code(s): K21.9 - Gastro-esophageal reflux disease without esophagitis PLAN: Plan *Continue therapies PT/OT/ST *Fall precautions *Vital signs per protocol per shift *Bladder protocol *CBC/CMP every 3 days *Bowel protocol *VTE prophylaxis Lovenox 40 mg subcu daily *Encourage fluid intake *Aspirin 81 mg p.o. daily *Brimonidine tartrate 2% 1 drop left eye twice daily *Gabapentin 600 mg p.o. 3 times daily *Levothyroxine 75 mcg p.o. daily *Atorvastatin 5 mg p.o. nightly *Protonix 40 mg p.o. nightly *Prednisone acetate 1 drop left eye daily *Timolol maleate 1 drop left eye twice daily *Effexor 150 mg p.o. daily *Dorzolamide hydrochloride 1 drop left eye twice daily *Trazodone 100 mg p.o. nightly for sleep *Acetaminophen 650 mg p.o. 3 times daily *Orthostatic vital signs *Heart healthy diet Charges/Coding Visit Charges Inpatient E&M: 96544 Init Hosp L1 Documented by User: Dr. Patricia Chandler DO 10/21/25 17:39 Objective Data Lab / Micro Data 10/14/25 05:50 10/14/25 05:40 Assessment & Plan Assessment/Plan (1) Acute ischemic stroke: (2) Physical debility: (3) Insomnia: QUALIFIERS: Insomnia type: other insomnia Qualified Code(s): G 47.09 - Other insomnia (4) Hypothyroid: QUALIFIERS: Hypothyroidism type: unspecified Qualified Code(s): E 03.9 - Hypothyroidism, unspecified (5) Neuropathy: (6) Glaucoma (increased eye pressure): QUALIFIERS: Glaucoma stage: moderate stage Glaucoma type: open- angle Laterality: bilateral Open angle glaucoma type: primary Qualified Code(s): H40.1132 - Primary open-angle glaucoma, bilateral, moderate stage (7) Depression: QUALIFIERS: Depression Type: persistent depressive disorder Q ualified Code(s): F34.1 - Dysthymic disorder (8) GERD (gastroesophageal reflux disease): QUALIFIERS: Esophagitis presence: esophagitis presence not specified Qualified Code(s): K21.9 - Gastro-esophageal reflux disease without esophagitis PLAN: Plan *Continue therapies PT/OT/ST *Fall precautions *Vital signs per protocol per shift *Bladder protocol *VTE prophylaxis Lovenox 40 mg subcu daily *Encourage fluid intake *Aspirin 81 mg p.o. daily *Brimonidine tartrate 2% 1 drop left eye twice daily *Gabapentin 400 mg mg p.o. 3 times daily *Levothyroxine 75 mcg p.o. daily *Atorvastatin 5 mg p.o. nightly - requested family bring in the Rosuvastatin she takes as an OP *Protonix 40 mg p.o. nightly *Prednisone acetate 1 drop left eye daily *Timolol maleate 1 drop left eye twice daily *Effexor 225 mg p.o. daily *Dorzolamide hydrochloride 1 drop left eye twice daily *Trazodone 100 mg p.o. nightly for sleep *Acetaminophen 650 mg p.o. 3 times daily *Orthostatic vital signs *Heart healthy diet I amended the Plan outlined by the CUSTOMER PROGRAM SPECIALIST and agree now with what is lisdted above.
[2025-10-19] MEDS: Senna/Docusate Sodium 1 Tablet 2 TABLET PO (08:27)
[2025-10-19] MEDS: Vitamin B Comp W-C Capsule 1 CAP PO (08:28)
[2025-10-19] MEDS: Aspirin E.C. 81 MG Tablet PO (08:28)
[2025-10-19] MEDS: Calcium Carb/Vitamin D 1 TABLET Tablet PO (08:28)
[2025-10-19] MEDS: Cholecalciferol (VIT D3) 25 MCG TABLET (1,000 UNITS) PO (08:28)
[2025-10-19 14:08] VITALS: BMI 35.4
[2025-10-19 15:10] VITALS: BP 96/58; PULSE 73; RESP 16; TEMP 36.4; O2SAT 94
[2025-10-19 21:00] VITALS: PULSE 73; RESP 16; O2SAT 94; BMI 35.4
[2025-10-20 04:07] LABS: PROLACTIN 13.2 ng/mL (3.6-25.2)
[2025-10-20] MEDS: Dorzolamide 2% 10ml Bottle 1 DRP LEFT EYE ×2 (05:59→22:09)
[2025-10-20 06:00] VITALS: BP 112/51; PULSE 58; RESP 17; TEMP 37.1; O2SAT 96
[2025-10-20] MEDS: Timolol 0.5% 5ML OPTH.BTL 1 DRP LEFT EYE ×2 (06:01→22:09)
[2025-10-20] MEDS: BRIMONIDINE 0.2% 5ML BOTTLE 1 DRP LEFT EYE ×2 (06:01→22:09)
[2025-10-20] MEDS: prednisoLONE eye drops (5 mL) 1 DROP OPTH.BTL 1 DRP LEFT EYE (06:04)
[2025-10-20] MEDS: Aspirin E.C. 81 MG Tablet PO (08:33)
[2025-10-20] MEDS: Cholecalciferol (VIT D3) 25 MCG TABLET (1,000 UNITS) PO (08:33)
[2025-10-20] MEDS: Senna/Docusate Sodium 1 Tablet 2 TABLET PO (08:33)
[2025-10-20] MEDS: Vitamin B Comp W-C Capsule 1 CAP PO (08:33)
[2025-10-20] MEDS: Calcium Carb/Vitamin D 1 TABLET Tablet PO (08:34)
[2025-10-20] MEDS: 0.9% Saline Lock 10 ML Syringe IV (08:38)
[2025-10-20 10:21] VITALS: BMI 35.4
--- NOTE | 2025-10-20 11:09 | PN_ITS ---
Subjective Subjective Afebrile VSS - Maintaining appropriate oxygen saturation on RA Oral intake - FOOD good FLUIDS good Discussed with nursing - no problems that need addressed Reviewed the THERAPY notes Medication list reviewed. AM cortisol was a little bit low yesterday at 5.66. Following Cortrosyn the cortisol level was 21.1 which is indicative of normal adrenal function. FSH and LH were both elevated secondary to postmenopausal state. Prolactin was normal. Discussed with endocrinology. No evidence of adrenal insufficiency. No need for any adjustments to levothyroxine. Since she has 2 grandchildren with autonomic dysfunction it is likely that it is an inherited type of autonomic dysfunction. Sleeping well at night now on 100 mg of trazodone. She is very upbeat, outgoing, talkative with a good appetite. She denies cephalgia, lightheadedness, chest pain, shortness of breath, nausea/vomiting/abdominal pain, dysuria and calf tenderness. Objective Data Objective Data Vital Signs: Vital Signs Temp Pulse Resp BP Pulse Ox O2 Del Method O2 Flow Rate 98.7 F 58 L 17 112/51 L 96 Room Air 0 10/20/25 06:00 10/20/25 06:00 10/20/25 06:00 10/20/25 06:00 10/20/25 06:00 10/20/25 10:00 10/17/25 20:54 FiO2 21 10/17/25 20:54 Oxygen Flow Rate (L/min) 0 Oxygen Delivery Method Room Air Weight: 192 lb 14.472 oz Body Mass Index (BMI) 35.4 Intake & Output: Intake and Output for Last 24 Hours 10/18/25 10/19/25 10/20/25 23:59 23:59 23:59 Intake Total 2500 / 2500 2540 / 2540 720 / 720 Output Total 1974 / 1974 1000 / 1000 Balance 525 / 525 1540 / 1540 720 / 720 Lab / Micro Data 10/14/25 05:50 10/14/25 05:40 Labs: Laboratory Results - last 24 hr 10/19/25 05:18: Prolactin 13.2 Rhythm Strip Rate: 61 Physical Exam Const alert, oriented x3 and no apparent distress General Appearance: cooperative HEENT moist oral mucous membranes Resp normal respiratory effort and clear to auscultation bilaterally Resp Narrative: No conversational dyspnea Effort and Inspection: Negative for tachypneic Cardio regular rate, regular rhythm and no gallops Cardio Narrative: No ectopy GI normal to inspection, nondistended, normoactive bowel sounds, soft to palpation and non-tender Extremity no calf tenderness Skin General Skin Exam: no breakdown Rashes: no rashes Neuro CN's II-XII intact bilaterally Neuro Narrative: No ataxia Psych affect normal Psych Narrative: She is calm. Relating well to staff and she is outgoing and talkative. She is engaged in our conversation and asks appropriate questions. Sleeping well at night and eating well. Appearance: appropriate Assessment & Plan Assessment/Plan (1) Acute ischemic stroke: (2) Physical debility: (3) Insomnia: QUALIFIERS: Insomnia type: other insomnia Qualified Code(s): G 47.09 - Other insomnia (4) Hypothyroid: QUALIFIERS: Hypothyroidism type: unspecified Qualified Code(s): E 03.9 - Hypothyroidism, unspecified (5) Neuropathy: (6) Glaucoma (increased eye pressure): QUALIFIERS: Glaucoma type: open-angle Open angle glaucoma type: p rimary Laterality: bilateral Glaucoma stage: moderate stage Qualified Code(s): H40.1132 - Primary open-angle glaucoma, bilateral, moderate stage (7) Depression: QUALIFIERS: Depression Type: persistent depressive disorder Q ualified Code(s): F34.1 - Dysthymic disorder (8) GERD (gastroesophageal reflux disease): QUALIFIERS: Esophagitis presence: esophagitis presence not specified Qualified Code(s): K21.9 - Gastro-esophageal reflux disease without esophagitis PLAN: Plan 1. Continue therapy 2. Will refer for a tilt table test as an outpatient and have her follow-up with cardiology to review the 30-day event monitor and to address possible POTS disease. 3. Apply DOMINIK donald 4. She is tolerating the decrease in gabapentin to 400 mg 3 times daily with no recurring radicular pain. Charges/Coding Visit Charges Inpatient E&M: 29854 Subs Hosp L1
--- NOTE | 2025-10-20 15:57 | CASEMGMT ---
Social Work IDT discussed pt's progressing. Pt is [place] on unit during the day and thriving in social environment, without the stress of caring for . SW offered to set DC date and IDT agreeable. - SW spoke with pt to discuss improvement and readiness to DC home. Pt agreed she is doing well and ready to set DC date. SW explained insurance update is 10/25, offered to set for or prior. Pt stated her dtr is off work on Mondays, 10/24, and can DC then. SW agreed. SW inquired about HHC vs OP therapy. Pt denied therapy needs and will do HEP. SW to confirm with therapists. Pt denied DME needs. SW offered to contact dtr but pt to speak with dtr. ROBERT requested pt select counseling agency and notify this worker to make initial appt. Pt agreeable and will review list. IDT updated. Plan: DC home with dtr 10/24, no needs Marcia Valerio MSW PICKER MACHINE OPERATOR
[2025-10-20 17:53] VITALS: BP 103/57; PULSE 65; RESP 14; TEMP 36.8; O2SAT 96
[2025-10-20 21:45] VITALS: PULSE 65; RESP 14; O2SAT 96; BMI 35.4
[2025-10-21] MEDS: BRIMONIDINE 0.2% 5ML BOTTLE 1 DRP LEFT EYE ×2 (05:44→21:28)
[2025-10-21] MEDS: Timolol 0.5% 5ML OPTH.BTL 1 DRP LEFT EYE ×2 (05:45→21:27)
[2025-10-21] MEDS: Dorzolamide 2% 10ml Bottle 1 DRP LEFT EYE ×2 (05:45→21:28)
[2025-10-21] MEDS: prednisoLONE eye drops (5 mL) 1 DROP OPTH.BTL 1 DRP LEFT EYE (05:47)
[2025-10-21] MEDS: Calcium Carb/Vitamin D 1 TABLET Tablet PO (09:04)
[2025-10-21] MEDS: Aspirin E.C. 81 MG Tablet PO (09:04)
[2025-10-21] MEDS: Vitamin B Comp W-C Capsule 1 CAP PO (09:05)
[2025-10-21] MEDS: Cholecalciferol (VIT D3) 25 MCG TABLET (1,000 UNITS) PO (09:06)
[2025-10-21 09:08] VITALS: BP 95/45; PULSE 77
[2025-10-21 10:43] VITALS: BMI 35.4
--- NOTE | 2025-10-21 15:49 | CHAPLAIN ---
Type of Pastoral Visit _x__ Initial Visit ___ Follow-up Visit ___ On-call Visit ___ General Patient Visit ___ Spiritual Assessment ___ Family Conference ___ Bereavement ___ Rapid Response ___ Code Blue ___ Other (describe below) Pastoral Care Referral From _x__ Patient ___ Family ___ Nurse ___ Physician ___ Tree Worker ___ Light Bulb Replacer ___ Other (describe below) Sacrament/Intervention _x__ Active listening ___ Anointing ___ Taoism ___ Bereavement ___ Communion ___ Jazmín exploration ___ _x__ Life review _x__ Prayer ___ Reconciliation ___ Sacrament of Sick _x__ Supportive presence ___ Wedding ___ Other (describe below) Pastoral Comments
[2025-10-21 17:59] VITALS: BP 98/60; PULSE 67; RESP 18; TEMP 36.4; O2SAT 96
[2025-10-21 21:00] VITALS: PULSE 67; RESP 18; O2SAT 96; BMI 35.4
[2025-10-22 06:00] VITALS: BP 91/46; PULSE 63; RESP 17; TEMP 36.3; O2SAT 97
[2025-10-22] MEDS: Timolol 0.5% 5ML OPTH.BTL 1 DRP LEFT EYE ×2 (06:58→22:48)
[2025-10-22] MEDS: BRIMONIDINE 0.2% 5ML BOTTLE 1 DRP LEFT EYE ×2 (06:59→22:42)
[2025-10-22] MEDS: Dorzolamide 2% 10ml Bottle 1 DRP LEFT EYE ×2 (07:00→22:48)
[2025-10-22] MEDS: prednisoLONE eye drops (5 mL) 1 DROP OPTH.BTL 1 DRP LEFT EYE (07:00)
[2025-10-22] MEDS: Calcium Carb/Vitamin D 1 TABLET Tablet PO (08:14)
[2025-10-22] MEDS: Senna/Docusate Sodium 1 Tablet 2 TABLET PO ×2 (08:14→22:46)
[2025-10-22] MEDS: Vitamin B Comp W-C Capsule 1 CAP PO (08:14)
[2025-10-22] MEDS: Cholecalciferol (VIT D3) 25 MCG TABLET (1,000 UNITS) PO (08:15)
[2025-10-22] MEDS: Aspirin E.C. 81 MG Tablet PO (08:15)
[2025-10-22 14:29] VITALS: BMI 35.4
[2025-10-22 18:00] VITALS: BP 100/58; PULSE 70; RESP 17; TEMP 36.4; O2SAT 100
[2025-10-22 20:24] VITALS: BMI 35.4
[2025-10-23 04:57] VITALS: BP 100/60; PULSE 68; RESP 18; TEMP 36.6; O2SAT 95
[2025-10-23] MEDS: BRIMONIDINE 0.2% 5ML BOTTLE 1 DRP LEFT EYE ×2 (05:04→21:46)
[2025-10-23] MEDS: Timolol 0.5% 5ML OPTH.BTL 1 DRP LEFT EYE ×2 (05:04→21:49)
[2025-10-23] MEDS: prednisoLONE eye drops (5 mL) 1 DROP OPTH.BTL 1 DRP LEFT EYE (05:04)
[2025-10-23] MEDS: Dorzolamide 2% 10ml Bottle 1 DRP LEFT EYE ×2 (05:05→21:49)
[2025-10-23] MEDS: Cholecalciferol (VIT D3) 25 MCG TABLET (1,000 UNITS) PO (08:13)
[2025-10-23] MEDS: Vitamin B Comp W-C Capsule 1 CAP PO (08:13)
[2025-10-23] MEDS: Senna/Docusate Sodium 1 Tablet 2 TABLET PO ×2 (08:13→21:50)
[2025-10-23] MEDS: Calcium Carb/Vitamin D 1 TABLET Tablet PO (08:13)
[2025-10-23] MEDS: Aspirin E.C. 81 MG Tablet PO (08:14)
[2025-10-23 09:15] VITALS: BMI 35.4
[2025-10-23 17:28] VITALS: BP 101/58; PULSE 65; RESP 18; TEMP 37; O2SAT 97
[2025-10-24 01:21] VITALS: BMI 35.4
[2025-10-24] MEDS: Timolol 0.5% 5ML OPTH.BTL 1 DRP LEFT EYE (06:47)
[2025-10-24] MEDS: prednisoLONE eye drops (5 mL) 1 DROP OPTH.BTL 1 DRP LEFT EYE (06:48)
[2025-10-24] MEDS: Dorzolamide 2% 10ml Bottle 1 DRP LEFT EYE (06:48)
[2025-10-24] MEDS: BRIMONIDINE 0.2% 5ML BOTTLE 1 DRP LEFT EYE (06:49)
[2025-10-24 06:58] VITALS: BP 103/55; PULSE 67; RESP 16; TEMP 37.2; O2SAT 95
[2025-10-24] MEDS: Aspirin E.C. 81 MG Tablet PO (08:09)
[2025-10-24] MEDS: Cholecalciferol (VIT D3) 25 MCG TABLET (1,000 UNITS) PO (08:09)
[2025-10-24] MEDS: Vitamin B Comp W-C Capsule 1 CAP PO (08:09)
[2025-10-24] MEDS: Calcium Carb/Vitamin D 1 TABLET Tablet PO (08:09)
[2025-10-24] MEDS: Senna/Docusate Sodium 1 Tablet 2 TABLET PO (08:09)
[2025-10-24] MEDS: Sodium Chloride 0.65% 1 SPRAY SPRAY.BTL NASAL (08:10)
--- NOTE | 2025-10-24 08:14 | DCINST_ITS ---
Discharge Instructions DC O2, CPAP, BIPAP needs Home O2 Discharge instructions: No Dressing / Incision Discharge Activity: May Shower Weight Bearing Status: Full weight bearing Keep extremity elevated above heart level: Legs Dressing / Incision Call your doctor if you observe: Fever of 101 or Higher, Numbness or Tingling, Inability to urinate, Inability to have a bowel movement, Shortness of breath, Dizziness, Fainting spells, Swelling in the ankles, Chest pain, Increased palpitations (irregular heartbeat), Calf discomfort and - (STROKE symptoms: facial droop, slurred speech, inability to get words out, weakness on 1 side of the body and not the other, numbness on 1 side of the body and not the other, inability to maintain your balance sitting or standing, vertigo. ) Follow Up Care When: Appointments have been made for you and they are listed later in this document. Test Results: Test results from this visit will be discussed in further detail at your follow- up appointment, if applicable. Pending Tests Upon Discharge: None Discharge Plan Admission Admit Date/Time: 10/13/25 17:20 Primary Reason for Your Visit: Left side weakness Attending Provider: Patricia Chandler Primary Care Provider: Gold Conrad Instructions Patient Instructions: POTS, Depression Affects Your Mind ..., Counseling for Depression Additional Instructions / Restrictions: 1. You have now been diagnosed with 2 strokes. In both instances the MRIs have not shown strokes and the CTA's (imaging of the blood vessels in the head and neck) have not shown any significant disease....some plaque but, < 50% narrowing of the vessels. You had the same symptoms, left side weakness and inability to get speech out, both times. The left side weakness comes from the R side of the brain and the inability to get your speech out comes from the left side of the brain. When both sides of the brain are involved we usually think maybe the patient has blood clots from a problem with the rhythm of the heart called atrial fibrillation (AFIB). You had a heart monitor after the first stroke and it did not show AFIB....it did show that sometimes your heart beats very fast....up to 145 beats per minute. Sometimes it was slow. Sometimes patients have stroke symptoms when there is poor blood/oxygen flow to the brain. You have a grandson who has been diagnosed with POTS disease. I have given you some literature about POTS to read. Your granddaughter also passes out and may have POTS. POTS can be inherited. We are referring you to Dr. Miguel Quintero who is a senior account manager who treats patients with POTS disease. He is probably going to want to do a Tilt table test on you. I am discharging you with an order for a 30 day heart monitor....Dr. Quintero will review the results of this test and discuss with you. 2. You have a lot of stress in your life and you are anxious and depressed. I was happy to hear that you are willing to do therapy because therapy and medication together do a much better job of treating anxiety/depression than either alone. You have an appt to see Dr. Hammer.....he is a psychiatrist and he will help to manage your medications to treat anxiety and depression. Dementia is a qualifying diagnosis for palliative care and hospice........you may want to consider this for your . Hospice provides respite care at the hospice facility to give caregivers a break sometimes. It is very hard to care for a patient with dementia 02/06. You need some help. I started you on a medication called Trazodone when you came to rehab because you had insomnia. Trazodone is a antidepressant and one of the biggest side effects is to make you sleepy. It may also help some for depression. I am going to keep you on this at Discharge. 3. We are also referring you to an excellent neurologist here in [place]. His name is Dr. Maikol Casiano. He will help to figure out what is causing the left side weakness and the trouble speaking. 4. It has been a pleasure getting to know you while you have been on rehab. You worked hard and you are very outgoing. Please take better care of yourself. If you or your family have any questions after you leave rehab please do not hesitate to call me. OFFICE: [phone] CELL: [phone] NURSES STATION ON REHAB: [phone] Discharge Orders/Prescriptions Prescriptions: New acetaminophen 325 mg Tablet 650 mg PO Q6H PRN PRN (Reason: fever or pain) Qty: 90 0RF gabapentin 400 mg Capsule 400 mg PO TIDCM Qty: 90 0RF trazodone 100 mg Tablet 100 mg PO QHS Qty: 30 0RF Continued venlafaxine 75 mg Capsule,Extended Release 24hr 75 mg PO DAILY pantoprazole 40 mg Tablet,Delayed Release (Dr/Ec) 40 mg PO QHS lovastatin 20 mg Tablet 20 mg PO QHS cholecalciferol (vitamin D3) 25 mcg (1,000 unit) Tablet 25 mcg PO DAILY calcium carbonate-vitamin D3 [Calcium 600 + D(3)] 600 mg(1,500mg) -400 unit Tablet 1 tab PO DAILY levothyroxine 75 mcg Capsule 75 mcg PO DAILY biotin 1,000 mcg Tablet,Chewable 1,000 mcg PO DAILY aspirin [Enteric Coated Aspirin] 81 mg tablet,delayed release (DR/EC) 81 mg PO DAILY Qty: 30 11RF brimonidine 0.2 % drops 1 drp LEFT EYE BID multivitamin Tablet 1 tab PO DAILY Complex B-100 Tablet Extended Release 1 tab PO DAILY prednisolone acetate 1 % drops,suspension 1 drp LEFT EYE DAILY timolol maleate 0.5 % drops 1 drp LEFT EYE BID venlafaxine 150 mg capsule,extended release 24hr 150 mg PO DAILY cyclobenzaprine 10 mg tablet 10 mg PO TID PRN (Reason: muscle spasm) ferrous sulfate [iron] 325 mg (65 mg iron) tablet 325 mg PO QODAY carboxymethylcellulose sodium [Refresh Liquigel] 1 % drops, liquid gel 1 drp EACH EYE BID Discontinued gabapentin 600 mg Tablet 600 mg PO TID Other Ambulatory Orders: 30 Day Event Recorder Preventi (Urgent) Timeframe: 1 Day Facility: [facility] - Location: Cardiovascular Services Ordered By: Dr. Patricia Chandler Referrals / Follow Up: [facility] [Other] - 11/04/25 9:00 am Referral Note: with Miguel Diop DO [Med Staff - Active Staff, Cardiology] - 11/08/25 11:00 am Referral Note: suspected POTS Gold Conrad DO [Primary Care Provider, Family Practice] - 10/28/25 9:30 am Maikol Casiano MD [Non-Staff -Ordering Privileges, Neurology] - 10/27/25 9:00 am Disposition Disposition (needs filled in before D/C Order can be placed): Home, Self Care
--- NOTE | 2025-10-24 08:59 | EX.DISCHREH ---
Providers Date of Admission: 10/13/25 Date of Discharge: 10/24/25 Primary Care Physician: Dr. Gold Conrad, DO none Reason For Visit: STROKE Diagnosis Discharge Diagnosis (1) Physical debility: Status: Acute Code(s): R53.81 - Other malaise (2) Acute ischemic stroke: Status: Acute Code(s): I63.9 - Cerebral infarction, unspecified Plan: MRI negative for stroke but, showed a few scattered foci of T2 FLAIR hyperintensity thought to be secondary to chronic microvascular ischemic changes. CTA with no LVO, no aneurysm, no significant stenosis. Transthoracic echocardiogram showed an EF of 55 to 60% with no regional wall motion abnormalities. The mitral valve annulus was severely calcified and the leaflets were mildly thickened with mild mitral regurgitation. The right ventricular systolic pressure was estimated at 27. There were no atrial septal defects/[id number]-jg-[id number] shunting. Symptoms at presentation to ED were Left side weakness and expressive aphasia. (3) Acute left hemiparesis: Status: Acute Code(s): G81.94 - Hemiplegia, unspecified affecting left nondominant side (4) Expressive aphasia: Status: Acute Code(s): R47.01 - Aphasia (5) History of thrombolytic therapy: Status: Acute Code(s): Z92.89 - Personal history of other medical treatment (6) Neuropathy: Status: Chronic Code(s): G62.9 - Polyneuropathy, unspecified (7) Frequent falls: Status: Acute Code(s): R29.6 - Repeated falls (8) Near syncope: Status: Acute Code(s): R55 - Syncope and collapse (9) Postural orthostatic tachycardia syndrome: Status: Suspected Code(s): G90.A - Postural orthostatic tachycardia syndrome [POTS] (10) Hyperlipidemia: Status: Acute Code(s): E78.5 - Hyperlipidemia, unspecified Qualifiers: Hyperlipidemia type: unspecified Qualified Code(s): E78.5 - Hyperlipidemia, unspecified (11) Hypothyroid: Status: Chronic Code(s): E03.9 - Hypothyroidism, unspecified Qualifiers: Hypothyroidism type: unspecified Qualified Code(s): E03.9 - Hypothyroidism, unspecified Plan: TSH is 0.856 and the T4 is normal at 0.8. FSH and LH were consistent with a postmenopausal state. Prolactin was within normal limits. Discussed with endocrinology and will continue 75 mcg of levothyroxine daily. (12) Glaucoma (increased eye pressure): Status: Chronic Code(s): H40.9 - Unspecified glaucoma Qualifiers: Glaucoma stage: moderate stage Glaucoma type: open-angle Laterality: bilateral Open angle glaucoma type: primary Qualified Code(s): H40.1132 - Primary open-angle glaucoma, bilateral, moderate stage (13) Depression: Status: Chronic Code(s): F32.A - Depression, unspecified Qualifiers: Depression Type: persistent depressive disorder Qualified Code(s): F34.1 - Dysthymic disorder Plan: With suicidal ideation at admission to rehab. She is the primary caregiver for her who has dementia and she is overwhelmed. Taking 225 mg of Effexor SR daily at discharge from rehab and she has been on this dose for quite some time. Trazodone 100 mg nightly was added for insomnia. (14) Insomnia: Status: Chronic Code(s): G47.00 - Insomnia, unspecified Qualifiers: Insomnia type: other insomnia Qualified Code(s): G47.09 - Other insomnia Plan: Sleeping well at DC from rehab on 100 mg of Trazodone Q HS. (15) GERD (gastroesophageal reflux disease): Status: Chronic Code(s): K21.9 - Gastro-esophageal reflux disease without esophagitis Qualifiers: Esophagitis presence: esophagitis presence not specified Qualified Code(s): K21.9 - Gastro-esophageal reflux disease without esophagitis Plan: Continue pantoprazole Plan 1. Discharge home. Patient did not want outpatient therapy or home health care for therapy. She elected to do her home exercise program given to her by the therapist prior to discharge from rehab. 2. Will continue trazodone 100 mg at bedtime for insomnia. She is sleeping well at the time of discharge. 3. 30-day event monitor ordered 4. She will follow-up with Dr. Quintero from cardiology to review the 30-day event monitor and to be evaluated for suspected POTS. 5. Gabapentin was decreased from 600 mg 3 times daily to 400 mg 3 times daily with complaints of radicular pain. Will discharge on 400 mg 3 times daily. 6. TSH and T4 were normal. 7. The a.m. cortisol was a tad low but the Cortrosyn stim test was negative for adrenal insufficiency. Potassium has been normal. 8. She will follow-up with Dr. Casiano for possible stroke 9. Follow-up appointment has been scheduled with PCP, Dr. Conrad Medications at Discharge Home Medications biotin 1,000 mcg chewable tablet 1,000 mcg PO DAILY vitamin 04/26/21 calcium 600 mg (as carbonate)-vitamin D3 10 mcg (400 unit) tablet (Calcium 600 + D(3)) 1 tab PO DAILY vitamin 04/26/21 cholecalciferol (vitamin D3) 25 mcg (1,000 unit) tablet 25 mcg PO DAILY vitamin 04/26/21 levothyroxine 75 mcg capsule 75 mcg PO DAILY thyroid 04/26/21 lovastatin 20 mg tablet 20 mg PO QHS cholesterol 04/26/21 pantoprazole 40 mg tablet,delayed release 40 mg PO QHS reflux 04/26/21 venlafaxine 75 mg capsule,extended release 24 hr 75 mg PO DAILY mental health 04/26/21 aspirin 81 mg tablet,delayed release (Enteric Coated Aspirin) 81 mg PO DAILY heart health #30 tabs 04/30/21 brimonidine 0.2 % eye drops 1 drp LEFT EYE BID ophthalmic solution 10/13/25 carboxymethylcellulose sodium 1 % eye liquid gel drops (Refresh Liquigel) 1 drp EACH EYE BID dry eye 10/13/25 cyclobenzaprine 10 mg tablet 10 mg PO TID PRN muscle spasm 10/13/25 ferrous sulfate 325 mg (65 mg iron) tablet (iron) 325 mg PO QODAY supplement 10/13/25 multivitamin 1 tab PO DAILY supplement 10/13/25 prednisolone acetate 1 % eye drops,suspension 1 drp LEFT EYE DAILY ophthalmic soultion 10/13/25 timolol maleate 0.5 % eye drops 1 drp LEFT EYE BID eye drop 10/13/25 venlafaxine 150 mg capsule,extended release 24 hr 150 mg PO DAILY mental health 10/13/25 vitamin B complex (Complex B-100 tablet,extended release) 1 tab PO DAILY supplement 10/13/25 acetaminophen 325 mg tablet 650 mg (2 x 325 mg) PO Q6H PRN PRN fever or pain #90 tabs 10/24/25 gabapentin 400 mg capsule 400 mg PO TIDCM #90 caps 10/24/25 trazodone 100 mg tablet 100 mg PO QHS #30 tabs 10/24/25 Physical Exam Const alert, oriented x3 and no apparent distress General Appearance: cooperative Nutritional Appearance: overweight HEENT normocephalic and head/scalp atraumatic HEENT Narrative: Dry mucous membranes. No evidence of thrush. She is a dentulous. She has a pronounced underbite. Eyes Eyes Narrative: The left pupil was a little larger than the right. At baseline the left eye deviates a little toward the outer canthus. 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 The extraocular muscles are intact. General Eye: normal light reflex Neck supple, no JVD, No nodes and no carotid bruits Neck Narrative: Brisk upstroke with good pulse volume. Chest Chest: symmetrical chest wall rise Resp normal respiratory effort and clear to auscultation bilaterally Effort and Inspection: able to speak in complete sentences Cardio regular rate, regular rhythm, no murmurs, no rub, no gallops and peripheral pulses 2+ throughout Cardio Narrative: No ectopy GI normal to inspection, nondistended, normoactive bowel sounds and soft to palpation GI Narrative: No guarding Extremity no calf tenderness Extremity Narrative: Her legs have no pitting edema. There are superficial varicosities in both legs. Prior to gastric bypass surgery she used to weigh over 400 pounds. She now weighs 192. I prescribed compression stockings because I suspect she may have postural orthostatic tachycardia syndrome but she does not like to wear them and I have rarely seen them on. Skin no rashes or lesions noted and no jaundice General Skin Exam: no breakdown Hair: Negative for patchy alopecia Neuro Neuro Narrative: She was able to hold the left arm up at 90 degrees today for a count of 10 with no drift. She was able to do the finger-nose test slowly but with no dysmetria or ataxia. She held her left leg up for a count of 5 and had no drift but she is weaker in the left leg than the right. She has good plantar and dorsiflexion bilaterally. Still with some decrease sensation of the left arm and left leg but no loss of sensation in the face. No aphasia, no dysarthria. No extinction. She has no ataxia. She was able to name all the objects I showed her and read the words and sentences correctly. Cranial nerves II through XII are grossly intact and she has no facial asymmetry. Good shoulder shrug bilaterally. Bonding Machine Operator on the left is decreased from the right but she is right-handed. She is not ataxic with ambulation. She has a reciprocal gait. Psych mental status grossly normal, thought process normal, speech normal and denies hallucinations Psych Narrative: She denies any suicidal ideation since she has been on rehab. She feels safe here. She has mentioned that at times she is afraid of her and what he might do. She tells me that the suicidal ideation happens when she is at home with her . She is often alone with him while Jelly is at work. Attitude: calm and engaged Activity / Motor Behavior: appropriate eye contact; Negative for psychomotor slowing, fidgetting, disorganized or restless Speech: normal speech Weight / BMI Weight Weight: 192 lb 14.472 oz Body Mass Index (BMI) 35.4 ABG / Lab / Microbiology Data 10/14/25 05:50 10/14/25 05:40 Indicators for Scoring Admitted with or Primary Diagnosis of CVA/Stroke: Yes Hx of CVA/Stroke: Yes Modified [place] Score MRS Score at time of Evaluation: 2-Slight disability NIHSS NIHSS 1a. Level of Consciousness: 0 - Alert; keenly responsive 1b. LOC Questions: 0 - Answers BOTH questions correctly 1c. LOC Commands: 0 - Performs BOTH tasks correctly 2. Best Gaze: 0 - Normal (The left eye has intact EOM but, when she looks at me the Left eye deviates slightly to the lateral canthus.......she tells me that this is chronic. ) 3. Visual: 0 - No visual loss 4. Facial Palsy: 0 - Normal symmetrical movements 5a. Left Arm: 0 - No drift; arm holds 90 (or 45) degrees for full 10 seconds 5b. Right Arm: 0 - No drift; arm holds 90 (or 45) degrees for full 10 seconds 6a. Left Le - No drift; leg holds 30-degree position for full 5 seconds (No drift but, the leg is weaker on the left than it is on the right. ) 6b. Right Le - No drift; leg holds 30-degree position for full 5 seconds 7. Limb Ataxia: 0 - Absent 8. Sensory: 1 - [id number] sensory loss; (Decreased sensation to pinprick in the left arm and left leg but sensation is intact in the face.) 9. Best Language: 0 - No aphasia; normal 10. Dysarthria: 0 - Normal 11. Extinction and Inattention: 0 - No abnormality Total: 1 Stroke Questions Stroke Team Activated: No D/C Instructions Diet Diet Order/Speech Therapy: INPATIENT Hospital Diet / Speech Therapy Order(s) 10/17/25 11:51 Diet: Regular - General Food consistency:: Regular Liquid Consistency:: Regular/Thin Type of Dietary Supplement:: Beneprotein in coffee Diet Comments: 2 scoops benepro in coffee w/ breakfast & lunch tray; Baked Lays w/ L & D Discharge order: Continue INPATIENT Hospital Diet / Speech Therapy Orders: Yes Weight Bearing Status: Full weight bearing Keep extremity elevated above heart level: Legs Call your doctor if you observe: Fever of 101 or Higher, Numbness or Tingling, Inability to urinate, Inability to have a bowel movement, Shortness of breath, Dizziness, Fainting spells, Swelling in the ankles, Chest pain, Increased palpitations (irregular heartbeat), Calf discomfort and - (STROKE symptoms: facial droop, slurred speech, inability to get words out, weakness on 1 side of the body and not the other, numbness on 1 side of the body and not the other, inability to maintain your balance sitting or standing, vertigo. ) DC O2, CPAP, BIPAP Needs PSN CPAP & BiPAP: BiPAP & CPAP Settings per PSN Fraction of Inspired Oxygen ( 21 10/17/25 20:54 FIO2) Home O2 Discharge instructions: No Pending Tests Upon Discharge: None When: Appointments have been made for you and they are listed later in this document. Meaningful Use Info Meaningful Use Meaningful Use Diagnoses (Choose all that apply): Ischemic CVA CVA Therapy Assessed for PT,OT and/or ST?: Yes Ischemic Stroke Antithrombotic order at d/c?: Yes Dx of Atrial fib/flutter?: No Anticoagulant at discharge?: No Reason anticoagulant not ordered: Treatment not Indicated Statin Dosing Therapy Reference: STATIN DOSE THERAPY REFERENCE: * Patients > 75 years receive moderate or high dose statin therapy. * Patients 75 years or YOUNGER should receive HIGH intensity statin dose unless contraindicated. You will be required to document reason for non-treatment if statin daily dose does not meet guidelines. HIGH DOSE STATIN THERAPY DAILY Atorvastatin > than or = to 40 mg Rosuvastatin > than or = to 20 mg Amlodipine + Atorvastatin > than or = to 2.5/40 mg Ezetimibe + Simvastatin 10/80 mg Simvastatin 80mg Statins at discharge?: Yes If patient is 75 or younger, pt will be discharged on HIGH intensity statin.: No High intensity statin for patient 75 or younger not ordered due to: She was seen by neurology at [facility]. She was on Crestor 10 mg daily at admission to [facility] and it was changed to lovastatin 20 mg at discharge from [facility]. The LDL was 49 on 10 mg of Crestor and I do not know why it was changed. Primary Dx Acute Ischemic CVA?: Yes IV thrombolytic ordered during stay?: No Reason IV thrombolytic not ordered: Procedure not Indicated Discharge Plan Admission Admit Date/Time: 10/13/25 17:20 Primary Reason for Your Visit: Left side weakness Attending Provider: Patricia Chandler Primary Care Provider: Gold Conrad Instructions Patient Instructions: POTS, Depression Affects Your Mind ..., Counseling for Depression Additional Instructions / Restrictions: 1. You have now been diagnosed with 2 strokes. In both instances the MRIs have not shown strokes and the CTA's (imaging of the blood vessels in the head and neck) have not shown any significant disease....some plaque but, < 50% narrowing of the vessels. You had the same symptoms, left side weakness and inability to get speech out, both times. The left side weakness comes from the R side of the brain and the inability to get your speech out comes from the left side of the brain. When both sides of the brain are involved we usually think maybe the patient has blood clots from a problem with the rhythm of the heart called atrial fibrillation (AFIB). You had a heart monitor after the first stroke and it did not show AFIB....it did show that sometimes your heart beats very fast....up to 145 beats per minute. Sometimes it was slow. Sometimes patients have stroke symptoms when there is poor blood/oxygen flow to the brain. You have a grandson who has been diagnosed with POTS disease. I have given you some literature about POTS to read. Your granddaughter also passes out and may have POTS. POTS can be inherited. We are referring you to Dr. Miguel Quintero who is a denture technician who treats patients with POTS disease. He is probably going to want to do a Tilt table test on you. I am discharging you with an order for a 30 day heart monitor....Dr. Quintero will review the results of this test and discuss with you. 2. You have a lot of stress in your life and you are anxious and depressed. I was happy to hear that you are willing to do therapy because therapy and medication together do a much better job of treating anxiety/depression than either alone. You have an appt to see Dr. Hammer.....he is a psychiatrist and he will help to manage your medications to treat anxiety and depression. Dementia is a qualifying diagnosis for palliative care and hospice........you may want to consider this for your . Hospice provides respite care at the hospice facility to give caregivers a break sometimes. It is very hard to care for a patient with dementia 02/06. You need some help. I started you on a medication called Trazodone when you came to rehab because you had insomnia. Trazodone is a antidepressant and one of the biggest side effects is to make you sleepy. It may also help some for depression. I am going to keep you on this at Discharge. 3. We are also referring you to an excellent neurologist here in [place]. His name is Dr. Maikol Casiano. He will help to figure out what is causing the left side weakness and the trouble speaking. 4. It has been a pleasure getting to know you while you have been on rehab. You worked hard and you are very outgoing. Please take better care of yourself. If you or your family have any questions after you leave rehab please do not hesitate to call me. OFFICE: [phone] CELL: [phone] NURSES STATION ON REHAB: [phone] Discharge Orders/Prescriptions Prescriptions: New acetaminophen 325 mg Tablet 650 mg PO Q6H PRN PRN (Reason: fever or pain) Qty: 90 0RF gabapentin 400 mg Capsule 400 mg PO TIDCM Qty: 90 0RF trazodone 100 mg Tablet 100 mg PO QHS Qty: 30 0RF Continued venlafaxine 75 mg Capsule,Extended Release 24hr 75 mg PO DAILY pantoprazole 40 mg Tablet,Delayed Release (Dr/Ec) 40 mg PO QHS lovastatin 20 mg Tablet 20 mg PO QHS cholecalciferol (vitamin D3) 25 mcg (1,000 unit) Tablet 25 mcg PO DAILY calcium carbonate-vitamin D3 [Calcium 600 + D(3)] 600 mg(1,500mg) -400 unit Tablet 1 tab PO DAILY levothyroxine 75 mcg Capsule 75 mcg PO DAILY biotin 1,000 mcg Tablet,Chewable 1,000 mcg PO DAILY aspirin [Enteric Coated Aspirin] 81 mg tablet,delayed release (DR/EC) 81 mg PO DAILY Qty: 30 11RF brimonidine 0.2 % drops 1 drp LEFT EYE BID multivitamin Tablet 1 tab PO DAILY Complex B-100 Tablet Extended Release 1 tab PO DAILY prednisolone acetate 1 % drops,suspension 1 drp LEFT EYE DAILY timolol maleate 0.5 % drops 1 drp LEFT EYE BID venlafaxine 150 mg capsule,extended release 24hr 150 mg PO DAILY cyclobenzaprine 10 mg tablet 10 mg PO TID PRN (Reason: muscle spasm) ferrous sulfate [iron] 325 mg (65 mg iron) tablet 325 mg PO QODAY carboxymethylcellulose sodium [Refresh Liquigel] 1 % drops, liquid gel 1 drp EACH EYE BID Discontinued gabapentin 600 mg Tablet 600 mg PO TID Other Ambulatory Orders: 30 Day Event Recorder Preventi (Urgent) Timeframe: 1 Day Facility: [facility] - Location: Cardiovascular Services Ordered By: Dr. Patricia Chandler Referrals / Follow Up: [facility] [Other] - 11/04/25 9:00 am Referral Note: with Miguel Diop DO [Med Staff - Active Staff, Cardiology] - 11/08/25 11:00 am Referral Note: suspected POTS Gold Conrad DO [Primary Care Provider, Family Practice] - 10/28/25 9:30 am Maikol Casiano MD [Non-Staff -Ordering Privileges, Neurology] - 10/27/25 9:00 am Disposition Disposition (needs filled in before D/C Order can be placed): Home, Self Care Charges/Coding Visit Charges Inpatient E&M: 82400 Disch Hosp >30min Hospital Course RU Operations None Procedures None Summary of Care Provided Minutes Spent on Discharge: 50 Hospital Course: Fina Miranda is a 70-year-old female with a past medical history of gastric bypass surgery, hyperlipidemia, GERD, degenerative disc disease in the cervical spine, glaucoma, macular degeneration, anxiety/depression, peripheral neuropathy, vitamin D deficiency and hypothyroidism who presented to [facility] on 10/05/2025 with left-sided weakness and expressive aphasia. A noncontrast CT of the head was negative for acute abnormality. CTA of the head and neck showed no large vessel occlusions and no aneurysms or AV malformations. NIH stroke score was reportedly 17. She received TNK and was admitted to the [facility] intensive care unit. On 10/06/2025 she had significant improvement in all her symptoms and her NIH was 5. On 10/07/2025 a rapid response was called for increased left-sided weakness and recurrent expressive aphasia with an NIH of 8. Stat CT brain showed no acute abnormalities. MRI of the brain without contrast on 10/08/25 showed no acute intracranial abnormalities. She had a few scattered foci of T2 flair hyperintensity within the bilateral cerebral white matter thought to be secondary to chronic microvascular ischemic changes. Echocardiogram showed a 55 to 60% EF with no regional wall motion abnormalities. The mitral annulus was severely calcified and the leaflets were mildly thickened with mild mitral regurgitation. The right ventricular systolic pressure was estimated at 27. There was no PFO/atrial septal defect. She was transferred to the acute inpatient rehab unit at [facility] on 10/13/2025 for 3 hours of therapy daily to restore function/independence at or near her level prior to the stroke. At admission she was on lovastatin 20 mg nightly and aspirin 81 mg daily. Fina was admitted to [facility] in April 2021 for left-sided weakness and expressive aphasia. She received TNK in the emergency department. CTA showed 20% carotid stenosis bilaterally with patent vertebral arteries bilaterally. She had no large vessel occlusion or aneurysm. MRI of the brain was normal. She had an event monitor that showed a maximum heart rate of 191 and a minimum heart rate of 54 bpm. There were no pauses greater than 3 seconds. She had no atrial fibrillation. Transthoracic echocardiogram showed a 60% ejection fraction with no wall motion abnormalities. She had no atrial enlargement. There was moderate mitral annular calcification and no MR at that point. The aortic valve was trileaflet with no aortic stenosis and no aortic insufficiency. At the time of discharge from the hospital cranial nerves II through XII are grossly intact and she was able to move all extremities. There was mild left lower extremity weakness. She did not follow-up with neurology. Fina admitted to frequent falls at home. At [facility] she was noted to have many bruises and bumps on her head. She denied syncope but, has had near syncope. She has a grandson who was diagnosed with POTS at [facility]. His sister also passes out frequently but has not been evaluated for POTS. Fina's BP was on the low side while on rehab. TSH and T4 were normal. AM cortisol was mildly decreased. A Cortrosyn stim test was done and the adrenal gland responded normally to ACTH with a rise in cortisol from 5.84-21.1. FSH and LH were consistent with postmenopausal state. Prolactin was within normal limits. At presentation to rehab on my exam she had drift with the LLE but, it did not hit the bed. She had no ataxia. CN's II-XII were intact. Tongue protruded on the midline. No aphasia or dysarthria. She had decreased sensation in the L arm and leg and intact sensation in the Face BL. She had no extinction. She scored a 48/50 on the BCAT. She c/o chronic insomnia and was started on trazodone 50 mg at at bedtime. This was not effective and the dose was increased to 100 mg nightly and she is now sleeping through the night. She was given a prescription for trazodone 100 mg tablets at discharge from rehab. She was taking 600 mg of gabapentin 3 times daily at presentation to rehab but was sleepy during the day. The dose was decreased to 400 mg 3 times daily and she is more alert. She has had no exacerbation in her nerve pain with the decrease in the gabapentin. Fina did very well in therapy. At the time of DC she was ambulating up to 1000 feet with a front wheel walker at supervision on various surfaces. She was able to complete transfers from various surfaces at mod I and was able to do 12 sit to stands in 30 seconds using her bilateral upper extremities to rise. She was able to do a 6 inch curb step with a wheeled walker at close contact-guard assist x 2 steps. She is mod I with eating, grooming, bathing, upper body dressing, lower body dressing, toilet transfer and toileting. She was supervision/set up with tub/shower transfer. Fian was discharged from rehab on 10/24/25 to home. She refused HHC and OP therapy and elected to continue the home exercise program given to her by the therapists prior to DC. She had no DME needs. Appts were scheduled for her to follow up with PCP, neurology (Dr. Casiano) and cardiology (Dr. Quintero). A requisition for a 30 day event monitor was completed. RX's were faxed to [facility] in [place]. Fina expressed to the SW and myself that she has had suicidal ideation when she is at home. She is the primary caregiver for her who has dementia. He is verbally abusive to her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
[2025-10-24 13:06] VITALS: BMI 35.4
--- NOTE | 2025-10-24 14:37 | NURSING ---
discharged home with daughter, discharged instructions, medications and appointments reviewed denies questions or concerns
[2025-10-24 14:38] VITALS: BMI 35.4
[2025-10-24 14:39] VITALS: BP 103/55; PULSE 67; RESP 16; TEMP 37.2; O2SAT 95
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
== END 2025-10-24 14:41 | disposition home or self-care (01) | DRG 57 ==
PROVIDERS: Admitting Provider Internal Medicine; PCP Student in an Organized Health Care Education/Training Program; Referring Provider Internal Medicine; Visit Provider Internal Medicine
DX: I69.354 Hemiplegia and hemiparesis following cerebral infarction affecting left non-dominant side (principal); R45.851 Suicidal ideations; G90.A Postural orthostatic tachycardia syndrome [POTS]; E03.9 Hypothyroidism, unspecified; F34.1 Dysthymic disorder; I69.320 Aphasia following cerebral infarction; I73.9 Peripheral vascular disease, unspecified; K21.9 Gastro-esophageal reflux disease without esophagitis; G47.33 Obstructive sleep apnea (adult) (pediatric); M48.04 Spinal stenosis, thoracic region; M48.07 Spinal stenosis, lumbosacral region; E78.5 Hyperlipidemia, unspecified; H35.30 Unspecified macular degeneration; M48.02 Spinal stenosis, cervical region; E55.9 Vitamin D deficiency, unspecified; I69.393 Ataxia following cerebral infarction; I69.392 Facial weakness following cerebral infarction; G62.9 Polyneuropathy, unspecified; S00.93XD Contusion of unspecified part of head, subsequent encounter; Z78.0 Asymptomatic menopausal state; Z79.899 Other long term (current) drug therapy; Z87.891 Personal history of nicotine dependence; G47.00 Insomnia, unspecified; H40.1132 Primary open-angle glaucoma, bilateral, moderate stage; X58.XXXD Exposure to other specified factors, subsequent encounter; Z79.82 Long term (current) use of aspirin; Z98.84 Bariatric surgery status; R29.6 Repeated falls
CPT/HCPCS: 36415; 80053; 82306; 82533; 83001; 83002; 83735; 84100; 84146; 84439; 84443; 84481; 85025; 92523; 94762; 97110; 97112; 97116; 97162; 97167; 97530; 97535; 97802; A4216; J0834